=== PATIENT | female | born 1970 | race Caucasian/White ===

== ENCOUNTER 2016-10-12 22:06 | Emergency (ER) | payer BC, OTHER ==
[2016-10-12 22:06] VITALS: BMI 25.9
[2016-10-12 22:45] VITALS: RESP 20
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
[2016-10-12] MEDS ORDERED: Sodium Chloride 0.9% 1,000 ML IV ONE (23:39)
[2016-10-13] MEDS ORDERED: Sodium Chloride 0.9% 1,000 ML ONE (00:10)
[2016-10-13 01:44] VITALS: BP 110/62; PULSE 69; TEMP 98.2; O2SAT 99
--- NOTE | 2016-10-13 08:14 | CT ---
PROCEDURE: CT HEAD WITHOUT CONTRAST. HISTORY: Headache COMPARISON: None available. TECHNIQUE: Axial computed tomography images were obtained through the head/brain without intravenous contrast. Radiation dose: Total exam DLP = 895 mGy-cm. This CT exam was performed using one or more of the following dose reduction techniques: Automated exposure control, adjustment of the mA and/or kV according to patient size, and/or use of iterative reconstruction technique. FINDINGS: HEMORRHAGE: No intracranial hemorrhage. BRAIN: No mass effect or edema. No atrophy or chronic microvascular ischemic changes. VENTRICLES: Unremarkable. No hydrocephalus. CALVARIUM: Unremarkable. PARANASAL SINUSES: Unremarkable as visualized. No significant inflammatory changes. MASTOID AIR CELLS: Unremarkable as visualized. No inflammatory changes. OTHER FINDINGS: None. IMPRESSION: No acute intracranial abnormality. If focal neurologic deficit persists, consider MRI. These findings were preliminarily reported at 12:07 a.m. on 10/13/[address] Nagi Snyder from [facility].
== END 2016-10-13 01:43 | disposition home or self-care (01) ==
LOC: C.ER 22:06
DX: R51 Headache (principal)
CPT/HCPCS: 70450; 96361; 96374; 96375; 99285; J2405; J2930; J7040

== ENCOUNTER 2017-08-05 15:17 | Emergency (ER) | payer BC ==
[2017-08-05 15:17] VITALS: BMI 25.9
[2017-08-05 15:26] VITALS: RESP 18; O2SAT 97
[2017-08-05] MEDS ORDERED: Sodium Chloride 0.9% 1,000 ML IV STA (15:32)
[2017-08-05] MEDS ORDERED: Sodium Chloride 0.9% 1,000 ML ONE (15:39)
--- NOTE | 2017-08-05 16:55 | C.PDOC ---
History Of Present Illness 46 year old female, with no significant PMHx, presents to the ED for evaluation of fever, chills, myalgia, and nausea which had sudden onset since yesterday. Patient denies shortness of breath, cough, rash, vomiting and recent travel. Time Seen by Provider: 08/05/17 15:30 Chief Complaint (Nursing): Flu-like Symptoms History Per: Patient History/Exam Limitations: no limitations Onset/Duration Of Symptoms: Hrs, Sudden Onset Current Symptoms Are (Timing): Still Present Location Of Pain: Diffuse Myalgias Associated Symptoms: Fever, Chills, Nausea. denies: Cough, Vomiting Recent travel outside of the [place]: No Additional History Per: Patient Past Medical History Reviewed: Historical Data, Nursing Documentation, Vital Signs Vital Signs: Last Vital Signs Temp 100.4 F H 08/05/17 16:55 Pulse 103 H 08/05/17 16:55 Resp 18 08/05/17 16:55 BP 95/62 L 08/05/17 16:55 Pulse Ox 97 08/05/17 17:03 - Medical History PMH: No Chronic Diseases Surgical History: No Surg Hx Family History: States: Unknown Family Hx - Social History Hx Alcohol Use: No Hx Substance Use: No - Immunization History Hx Tetanus Toxoid Vaccination: No Hx Influenza Vaccination: No Hx Pneumococcal Vaccination: No Review Of Systems Respiratory: Negative for: Shortness of Breath Skin: Negative for: Rash Physical Exam - Physical Exam Additional Physical Exam Comments: Constitutional: Mildly uncomfortable. Head: Normocephalic. Atraumatic. Eyes: PERRL. ENT: Moist mucous membranes. Neck: Supple. Cardiovascular: Tachycardia. Radial pulse 2+ bilaterally. Chest: No tenderness. Respiratory: Clear to auscultation bilaterally. GI: Soft. Nontender. Nondistended. Back: No CVA tenderness. Musculoskeletal: No tenderness or swelling of extremities. Skin: No rash. Warm to touch. Neurologic: Alert, no focal deficit. ED Course And Treatment O2 Sat by Pulse Oximetry: 97 Medical Decision Making Medical Decision Making: Plan: * Zofran IVP * Toradol IVP * Tamiflu PO * IV Fluids * reassess and disposition Progress: Zofran IVP, Toradol IVP and IV fluids administered. Patient given Tamiflu PO for empiric influenza treatment. Vital signs improved. Has follow up with PMD, instructed to move up appointment to 2 days, instructed to return to ED for worsening pain, fever, vomiting, or any other problem. Disposition - Disposition Referrals: Tony Donis Jr., MD [Primary Care Provider] - Disposition: HOME/ ROUTINE Disposition Time: 17:02 Condition: STABLE Prescriptions: Acetaminophen [Tylenol 325mg tab] 2 tab PO Q4H #30 tab Ibuprofen [Motrin] 600 mg PO Q6 #25 tab Ondansetron ODT [Zofran ODT] 4 mg PO Q8 #12 odt Oseltamivir Phosphate [Tamiflu] 1 cap PO BID #9 capsule Instructions: Flu, Adult (DC) Forms: [facility] (Nepali), Work Excuse, Gen Discharge Inst Icelandic - Clinical Impression Clinical Impression: Influenza-like illness
[2017-08-05 16:56] VITALS: BP 95/62; PULSE 103; TEMP 100.4
== END 2017-08-05 17:19 | disposition home or self-care (01) ==
LOC: C.ER 15:17
DX: J11.1 Influenza due to unidentified influenza virus with other respiratory manifestations (principal)
CPT/HCPCS: 96361; 96374; 96375; 99283; J1885; J2405; J7040

== ENCOUNTER 2017-08-07 12:22 | Inpatient (IN) | payer BC ==
[2017-08-07 12:23] VITALS: BMI 25.9
[2017-08-07] MEDS ORDERED: Sodium Chloride 0.9% 1,000 ML IV ONE (13:13)
[2017-08-07 13:38] LABS: BASO # 0.1 K/uL (0.0-0.2); HEMOGLOBIN 12.1 g/dL (11.0-16.0); LYMPH # 0.3 K/uL (1.0-4.3); LYMPH % 2.4 % (20.0-40.0); MEAN CELL VOLUME 85.9 fL (81.0-99.0); MEAN CORPUSCULAR HGB CONC 33.7 g/dL (33.0-37.0); MEAN PLATELET VOLUME 10.2 fL (7.2-11.7); MONO # 0.4 K/uL (0.0-0.8); MONO % 3.3 % (0.0-10.0); NEUT # 10.7 K/uL (1.8-7.0); NEUT % 93.3 % (50.0-75.0); PLATELET COUNT 157 K/uL (130-400); RBC 4.17 Mil/uL (3.80-5.20); RED CELL DISTRIBUTION WIDTH 14.4 % (11.5-14.5); WHITE BLOOD COUNT 11.5 K/uL (4.8-10.8)
[2017-08-07 13:44] LABS: ALB/GLOB RATIO 0.9 (1.0-2.1); ALBUMIN 3.3 g/dL (3.5-5.0); ALT/SGPT 58 U/L (9-52); AST/SGOT 52 U/L (14-36); BLOOD UREA NITROGEN 12 mg/dL (7-17); CALCIUM 8.7 mg/dl (8.6-10.4); GFR AFRICAN-AMERICAN > 60; GFR NON-AFRICAN AMERICAN > 60; LIPASE 28 U/L (23-300)
[2017-08-07 13:45] LABS: HCG,QUALITATIVE URINE NEGATIVE (NEGATIVE)
[2017-08-07 13:59] LABS: SQUAMOUS EPITHIAL 7 /hpf (0-5); URINE BACTERIA FEW (<OCC); URINE BILIRUBIN NEGATIVE (NEGATIVE); URINE BLOOD 2+ (NEGATIVE); URINE CLARITY Hazy (Clear); URINE COLOR Amber (YELLOW); URINE GLUCOSE (UA) NORMAL (Normal); URINE LEUKOCYTE ESTERASE 3+ Leu/uL (Negative); URINE PROTEIN 2+ mg/dL (NEGATIVE); WBC CLUMPS FEW /hpf
[2017-08-07 14:03] LABS: ANISOCYTOSIS SLIGHT; BANDS 27 % (0-2); LARGE PLATELETS PRESENT; LYMPHOCYTE 3 % (20-40); MONOCYTE 4 % (0-10); NEUTROPHIL 66 % (50-75); PLATELET ESTIMATE NORMAL (NORMAL); TOTAL CELLS COUNTED 100
[2017-08-07 14:31] LABS: VENOUS BLOOD GAS BASE EXCESS -1.5 mmol/L (0.0-2.0); VENOUS BLOOD GAS PCO2 41 mmHg (40-60); VENOUS BLOOD GAS PO2 18 mm/Hg (30-55); VENOUS BLOOD PH 7.37 (7.32-7.43)
[2017-08-07] MEDS ORDERED: cefTRIAXone IV 1 gm in Dextros 50 ML IVPB STA (14:33)
[2017-08-07] MEDS ORDERED: cefTRIAXone IV 1 gm in Dextros 50 ML IVPB ONE (15:11)
--- NOTE | 2017-08-07 15:29 | CT ---
PROCEDURE: CT Abdomen and Pelvis without intravenous contrast HISTORY: Urosepsis. LUQ/left CVA tenderness. COMPARISON: None. TECHNIQUE: Axial and reformatted coronal and sagittal CT images of the abdomen and pelvis were obtained without IV or oral contrast administration.. Contrast Dose: 0 Radiation dose: Total exam DLP = 474.16 mGy-cm. This CT exam was performed using one or more of the following dose reduction techniques: Automated exposure control, adjustment of the mA and/or kV according to patient size, and/or use of iterative reconstruction technique. FINDINGS: LOWER THORAX: No evidence of acute pathology at the lung bases. Focal calcifications seen at the right lung base likely represent calcified granuloma. LIVER: Hepatomegaly and diffuse low-attenuation of the liver suggestive of hepatic steatosis. GALLBLADDER AND BILE DUCTS: No evidence of acute cholecystitis or biliary obstruction. PANCREAS: Unremarkable. No gross lesion or ductal dilatation. SPLEEN: Unremarkable. ADRENALS: Unremarkable. No mass. KIDNEYS AND URETERS: The left kidney is larger than the right surrounding with mild fat stranding. There is mild dietitian of the left kidney collecting system noted without evidence of obstructing stone. Mild fat stranding also surrounding the left ureter. Findings likely represent pyelonephritis/ UTI. The right kidney is grossly unremarkable. VASCULATURE: Unremarkable. No aortic aneurysm. BOWEL: Unremarkable. No obstruction. No gross mural thickening. APPENDIX: No evidence of acute appendicitis. PERITONEUM: No evidence of free fluid free air . LYMPH NODES: Unremarkable. No enlarged lymph nodes. BLADDER: Ziqg-oh-bbuigjmy circumferential urinary bladder wall thickening. REPRODUCTIVE: Unremarkable. BONES: No acute fracture. OTHER FINDINGS: None. IMPRESSION: Mild enlargement of the left kidney surrounding with mild fat stranding. Mild dietitian of the left kidney collecting system also surrounding with fat stranding without evidence of obstructing stone. Findings likely represent pyelonephritis and UTI. Ehpi-ou-jjknbpyy urinary bladder wall thickening suggestive of cystitis. Otherwise no evidence of acute pathology in the abdomen and pelvis.
--- NOTE | 2017-08-07 15:55 | C.PDOC ---
History Of Present Illness Pt c/o fever. She was seen here 2 days ago and treated for presumed Influenza. Pt returns today because she is worsening. Time Seen by Provider: 08/07/17 13:06 Chief Complaint (Nursing): Fever History Per: Patient, Family Onset/Duration Of Symptoms: Days (2) Current Symptoms Are (Timing): Worse Severity: Moderate Location Of Pain/Discomfort: LUQ Quality Of Discomfort: "Pain" Associated Symptoms: Fever, Chills, Nausea, Back Pain, Urinary Symptoms Alleviating Factors: None Additional History Per: Prior Records Past Medical History Reviewed: Historical Data, Nursing Documentation, Vital Signs Vital Signs: Last Vital Signs Temp 98.0 F 08/07/17 14:23 Pulse 99 H 08/07/17 14:23 Resp 22 08/07/17 14:23 BP 100/55 L 08/07/17 14:23 Pulse Ox 98 08/07/17 14:23 - Medical History PMH: No Chronic Diseases Surgical History: No Surg Hx Family History: States: Unknown Family Hx - Social History Hx Alcohol Use: No Hx Substance Use: No - Immunization History Hx Tetanus Toxoid Vaccination: No Hx Influenza Vaccination: No Hx Pneumococcal Vaccination: No Review Of Systems Except As Marked, All Systems Reviewed And Found Negative. Constitutional: Positive for: Fever, Chills, Malaise ENT: Negative for: Nose Congestion, Throat Pain Cardiovascular: Negative for: Chest Pain Respiratory: Negative for: Cough, Shortness of Breath Gastrointestinal: Positive for: Nausea, Vomiting, Abdominal Pain. Negative for : Diarrhea Genitourinary: Positive for: Dysuria, Frequency Musculoskeletal: Positive for: Back Pain Skin: Negative for: Rash Neurological: Positive for: Headache. Negative for: Weakness, Numbness, Seizures, Altered Mental Status Physical Exam - Physical Exam Appears: In Acute Distress (mild) Skin: Normal Color, Warm, Dry, No Rash Head: Atraumatic, Normacephalic Eye(s): bilateral: Normal Inspection, PERRL, EOMI Neck: Normal ROM, Supple Cardiovascular: Rhythm Regular Respiratory: Normal Breath Sounds, No Accessory Muscle Use Gastrointestinal/Abdominal: Soft, Tenderness (LUQ), No Distention Back: CVA Tenderness (left) Extremity: Normal ROM Neurological/Psych: Oriented x3, Normal Motor, Normal Sensation ED Course And Treatment - Laboratory Results Result Diagrams: 08/07/17 13:26 08/07/17 13:26 Lab Interpretation: Abnormal Interpretation Of Abnormal: Bandemia. UTI. Urine POC: Negative O2 Sat by Pulse Oximetry: 98 Pulse Ox Interpretation: Normal - CT Scan/US CT abd/pelv Other Rad Studies (CT/US): Read By Radiologist, Radiology Report Reviewed CT/US Interpretation: IMPRESSION: Mild enlargement of the left kidney surrounding with mild fat stranding. Mild dietitian of the left kidney collecting system also surrounding with fat stranding without evidence of obstructing stone. Findings likely represent pyelonephritis and UTI. Mild-to- moderate urinary bladder wall thickening suggestive of cystitis. Otherwise no evidence of acute pathology in the abdomen and pelvis. Progress - Interventions Interventions:: Observation, Intravenous fluid - Medications Administered Oral: Acetaminophen, Antiemetic Intravenous: H-2 pranav, Other (Abx) - Data Reviewed Data Reviewed: Lab, Diagnostic imaging, Old records - Patient Status Patient status: Partially improved - Continuity of Care Discussed patient case with:: Patient, Family-HIPPA compliant, ED Nurse, PMD - Patient Plan Patient Plan: Admission Disposition Discussed With DrCristian: Tony Donis Jr. Comment: He accepted pt on his service. Pt was also signed out to MAR. Doctor Will See Patient In The: Hospital Counseled Patient/Family Regarding: Studies Performed, Diagnosis - Disposition Disposition: HOSPITALIZED Disposition Time: 15:57 Condition: SERIOUS - Clinical Impression Clinical Impression: Fever, Sepsis, Acute pyelonephritis, Bandemia
[2017-08-07] MEDS ORDERED: Sodium Chloride 0.9% 1,000 ML IV SCH (16:30)
[2017-08-07] MEDS ORDERED: Potassium Chloride 20 mEq ER Tab PO ONE ×2 (16:34→17:10)
--- NOTE | 2017-08-07 16:38 | CP.PCM.HP ---
History of Present Illness - History of Present Illness History of Present Illness: HPI: Patient is a 46 year old female with no significant past medical history, who presents to the ED complaining of generalized headache, nausea/vomiting, body aches, and dysuria. Patient says this started Tuesday so she came to the ED to be evaluated, and was ultimately was sent home on tamiflu, zofran, and ibuprofen. Patient says over the weekend she felt like her symptoms were getting worse and she was having fever, chills, and 2 episodes of emesis, so she decided to come back today. Patient admits to associated left sided flank and back pain, hematuria, suprapubic tenderness, and urinary frequency. Patient also admits to nasal congestion and SOB and rapid heart rate when walking/ exerting herself. She denies dizziness, sore throat, changes in vision/hearing, chest pain, cough, diarrhea, constipation, calf pain, lower extremity swelling, sick contacts, and recent travel. PMH: denies Meds: denies Allergies: denies PSH: FH: mother with DM SH: denies tobacco, alcohol, and elicit drug use Present on Admission - Present on Admission Any Indicators Present on Admission: No Review of Systems - Review of Systems All systems: reviewed and no additional remarkable complaints except (as per HPI ) Past Patient History - Infectious Disease Hx of Infectious Diseases: None - Past Social History Smoking Status: Never Smoked - PSYCHIATRIC Hx Substance Use: No - SURGICAL HISTORY Hx Surgeries: Yes Hx Section: Yes Hx Hysterectomy: Yes - ANESTHESIA Hx Anesthesia: Yes Hx Anesthesia Reactions: No Meds Allergies/Adverse Reactions: Allergies Allergy/AdvReac Type Severity Reaction Status Date / Time No Known Allergies Allergy Verified 08/07/17 12:27 Physical Exam - Constitutional Appears: Non-toxic, No Acute Distress - Head Exam Head Exam: ATRAUMATIC, NORMAL INSPECTION, NORMOCEPHALIC - Eye Exam Eye Exam: EOMI, Normal appearance, PERRL - ENT Exam ENT Exam: Mucous Membranes Dry - Neck Exam Neck exam: Positive for: Normal Inspection - Respiratory Exam Respiratory Exam: Clear to Auscultation Bilateral, NORMAL BREATHING PATTERN - Cardiovascular Exam Cardiovascular Exam: Tachycardia, REGULAR RHYTHM, +S1, +S2. absent: Diastolic murmur, Gallop, Rubs, Systolic Murmur - GI/Abdominal Exam GI & Abdominal Exam: Guarding (voluntary), Normal Bowel Sounds, Soft, Tenderness (suprapubic and left flank ). absent: Distended - Extremities Exam Extremities exam: Positive for: normal inspection. Negative for: calf tenderness, pedal edema - Back Exam Back exam: CVA tenderness (L). absent: CVA tenderness (R), rash noted, vertebral tenderness - Neurological Exam Neurological exam: Alert, Oriented x3 - Psychiatric Exam Psychiatric exam: Normal Affect, Normal Mood - Skin Skin Exam: Dry, Intact, Normal Color, Warm Results - Vital Signs Recent Vital Signs: Last Vital Signs Temp 98.0 F 08/07/17 14:23 Pulse 99 H 08/07/17 14:23 Resp 22 08/07/17 14:23 BP 100/55 L 08/07/17 14:23 Pulse Ox 98 08/07/17 15:58 - Labs Result Diagrams: 08/07/17 13:26 08/07/17 13:26 Labs: Laboratory Results - last 24 hr 08/07/17 08/07/17 08/07/17 13:26 13:26 13:29 WBC 11.5 H D RBC 4.17 Hgb 12.1 Hct 35.9 MCV 85.9 MCH 29.0 MCHC 33.7 RDW 14.4 Plt Count 157 MPV 10.2 Neut % (Auto) 93.3 H Lymph % (Auto) 2.4 L Barton % (Auto) 3.3 Eos % (Auto) 0.0 Baso % (Auto) 1.0 Neut # (Auto) 10.7 H Lymph # (Auto) 0.3 L Barton # (Auto) 0.4 Eos # (Auto) 0.0 Baso # (Auto) 0.1 Neutrophils % (Manual) 66 Band Neutrophils % 27 H* Lymphocytes % (Manual) 3 L Monocytes % (Manual) 4 Differential Comment Cancelled Platelet Estimate Normal Large Platelets Present Anisocytosis (manual) Slight pO2 VBG pH VBG pCO2 VBG HCO3 VBG Total CO2 VBG O2 Sat (Calc) VBG Base Excess VBG Potassium Glucose Lactate Sodium 141 Potassium 3.3 L Chloride 106 Carbon Dioxide 22 Anion Gap 16 BUN 12 Creatinine 0.8 Est GFR ( Amer) > 60 Est GFR (Non-Af Amer) > 60 Random Glucose 132 H Calcium 8.7 Total Bilirubin 0.8 AST 52 H ALT 58 H Alkaline Phosphatase 157 H Total Protein 7.1 Albumin 3.3 L Globulin 3.8 Albumin/Globulin Ratio 0.9 L Lipase 28 Venous Blood Potassium Urine Color Urine Clarity Urine pH Ur Specific Woodworth Urine Protein Urine Glucose (UA) Urine Ketones Urine Blood Urine Nitrate Urine Bilirubin Urine Urobilinogen Ur Leukocyte Esterase Urine WBC (Auto) Urine RBC (Auto) Urine WBC Clumps (Auto) Ur Squamous Epith Cells Urine Bacteria Urine HCG, Qual Influenza Typ A,B (EIA) Negative for flu a/b 08/07/17 08/07/17 13:33 14:26 WBC RBC Hgb Hct MCV MCH MCHC RDW Plt Count MPV Neut % (Auto) Lymph % (Auto) Barton % (Auto) Eos % (Auto) Baso % (Auto) Neut # (Auto) Lymph # (Auto) Barton # (Auto) Eos # (Auto) Baso # (Auto) Neutrophils % (Manual) Band Neutrophils % Lymphocytes % (Manual) Monocytes % (Manual) Differential Comment Platelet Estimate Large Platelets Anisocytosis (manual) pO2 18 L VBG pH 7.37 VBG pCO2 41 VBG HCO3 21.8 VBG Total CO2 25.0 VBG O2 Sat (Calc) 38.1 L VBG Base Excess -1.5 L VBG Potassium 3.8 Glucose 129 H Lactate 1.2 Sodium 141.0 Potassium Chloride 110.0 H Carbon Dioxide Anion Gap BUN Creatinine Est GFR ( Amer) Est GFR (Non-Af Amer) Random Glucose Calcium Total Bilirubin AST ALT Alkaline Phosphatase Total Protein Albumin Globulin Albumin/Globulin Ratio Lipase Venous Blood Potassium 3.8 Urine Color Ute Urine Clarity Hazy Urine pH 6.0 Ur Specific Woodworth 1.017 Urine Protein 2+ H Urine Glucose (UA) Normal Urine Ketones Trace Urine Blood 2+ H Urine Nitrate Positive H Urine Bilirubin Negative Urine Urobilinogen 4.0 H Ur Leukocyte Esterase 3+ H Urine WBC (Auto) 486 H Urine RBC (Auto) 25 H Urine WBC Clumps (Auto) Few H Ur Squamous Epith Cells 7 H Urine Bacteria Few H Urine HCG, Qual Negative Influenza Typ A,B (EIA) Assessment & Plan - Assessment and Plan (Free Text) Plan: Cystitis, Pyelonephritis, Urosepsis * Fever 101.3, tachycardia 130, Leukocytosis 11.5 with bandemia (27) * Lactate 1.2 * UA: + nitrates and leuk esterase 3+, protein 2+, blood 2+ with RBC 25, WBC 486 ; see full results * CT abdomen/pelvis: Mild enlargement of the left kidney surrounding with mild fat stranding. Mild dietitian of the left kidney collecting system also surrounding with fat stranding without evidence of obstructing stone. Findings likely represent pyelonephritis and UTI. [id number] urinary bladder wall thickening suggestive of cystitis. Otherwise no evidence of acute pathology in the abdomen and pelvis. * f/u urine culture * f/u blood culture * Flu negative Meds/Fluids: * Tylenol 650 mg Q6 PRN fever * Rocephin 1 g IV daily * NS @100 cc/h Transaminitis * f/u hepatitis panel * f/u GGT * monitor with CMP Hypokalemia * Potassium 3.3 on admission * f/u magnesium level * Replaced, will monitor
[2017-08-07] MEDS: Sodium Chloride 0.9% 1,000 ML IV SCH (17:48)
[2017-08-08] MEDS: Sodium Chloride 0.9% 1,000 ML IV SCH ×5 (03:00→17:58)
[2017-08-08] MEDS ORDERED: guaiFENesin 100 mg/5 ml Syrup UD PO PRN (06:04)
[2017-08-08] MEDS ORDERED: (Novolin R) Insulin Human Regular 100 units/ml vial SC ONE (06:22)
[2017-08-08 07:42] LABS: BASO % 0.3 % (0.0-2.0); HEMOGLOBIN 11.7 g/dL (11.0-16.0); LYMPH # 0.7 K/uL (1.0-4.3); LYMPH % 7.7 % (20.0-40.0); MEAN CELL VOLUME 86.1 fL (81.0-99.0); MEAN CORPUSCULAR HEMOGLOBIN 29.1 pg (27.0-31.0); MEAN CORPUSCULAR HGB CONC 33.8 g/dL (33.0-37.0); MEAN PLATELET VOLUME 10.5 fL (7.2-11.7); MONO # 0.6 K/uL (0.0-0.8); NEUT # 8.2 K/uL (1.8-7.0); PLATELET COUNT 130 K/uL (130-400); RBC 4.01 Mil/uL (3.80-5.20); RED CELL DISTRIBUTION WIDTH 14.6 % (11.5-14.5); WHITE BLOOD COUNT 9.6 K/uL (4.8-10.8)
[2017-08-08 07:59] LABS: ALB/GLOB RATIO 0.9 (1.0-2.1); ALT/SGPT 47 U/L (9-52); AST/SGOT 53 U/L (14-36); BLOOD UREA NITROGEN 9 mg/dL (7-17); CALCIUM 8.1 mg/dl (8.6-10.4); GAMMA GLUTAMYL TRANSPEPTIDASE 101 U/L (8-78); GFR AFRICAN-AMERICAN > 60; GFR NON-AFRICAN AMERICAN > 60
[2017-08-08 08:33] LABS: HEPATITIS B SURFACE AG Negative (NEGATIVE)
[2017-08-08 08:36] LABS: ANISOCYTOSIS SLIGHT; BANDS 2 % (0-2); HYPOCHROMIC SLIGHT; LYMPHOCYTE 10 % (20-40); MONOCYTE 7 % (0-10); NEUTROPHIL 81 % (50-75); PLATELET ESTIMATE NORMAL (NORMAL); POIKILOCYTOSIS SLIGHT; TOTAL CELLS COUNTED 100
[2017-08-08 08:37] LABS: BURR CELLS SLIGHT; LARGE PLATELETS PRESENT; OVALOCYTES SLIGHT; TARGET CELLS SLIGHT
[2017-08-08 08:38] LABS: HEPATITIS A IGM NEGATIVE (NEGATIVE); HEPATITIS B CORE AB NEGATIVE (NEGATIVE)
[2017-08-08 08:49] LABS: HEPATITIS C ANTIBODY NEGATIVE (NEGATIVE)
[2017-08-08] MEDS ORDERED: Sodium Chloride 0.9% 1,000 ML IV ONE ×3 (09:37→15:25)
[2017-08-08] MEDS ORDERED: Morphine 4 MG/ML VIAL IV ONE (09:38)
--- NOTE | 2017-08-08 09:44 | CP.PCM.PN ---
<Henrry Melara - Last Filed: 08/08/17 15:29> Subjective - Date & Time of Evaluation Date of Evaluation: 08/08/17 Time of Evaluation: 09:39 - Subjective Subjective: Patient seen and examined at bedside Complaining of neck pain, head pain, and bilateral flank pain and stomach pain No nausea or vomiting. No chest pain Objective - Vital Signs/Intake and Output Vital Signs (last 24 hours): Temp Pulse Resp BP Pulse Ox 100.9 F H 90 20 102/66 98 08/08/17 06:25 08/08/17 08:06 08/08/17 08:06 08/08/17 08:06 08/08/17 08:06 Intake and Output: 08/08/17 08/08/17 06:59 18:59 Intake Total 1300 Balance 1300 - Medications Medications: Current Medications Acetaminophen (Tylenol 325mg Tab) 650 mg PO Q6 PRN PRN Reason: Fever >100.4 F Last Admin: 08/08/17 05:25 Dose: 650 mg Heparin Sodium (Porcine) (Heparin) 5,000 units SC Q12 PHILLIP Last Admin: 08/08/17 09:31 Dose: 5,000 units Ceftriaxone Sodium 1 gm/ (Sodium Chloride) 100 mls @ 100 mls/hr IVPB DAILY PHILLIP PRN Reason: Protocol Last Admin: 08/08/17 09:31 Dose: 100 mls/hr Meropenem 1 gm/ Sodium (Chloride) 100 mls @ 100 mls/hr IVPB Q8H PHILLIP PRN Reason: Protocol Sodium Chloride (Sodium Chloride 0.9%) 1,000 mls @ 150 mls/hr IV .Q6H40M PHILLIP Sodium Chloride (Sodium Chloride 0.9%) 1,000 mls @ 1,000 mls/hr IV .Q1H ONE Stop: 08/08/17 10:36 Morphine Sulfate (Morphine) 2 mg IV ONCE ONE Stop: 08/08/17 09:39 Ondansetron HCl (Zofran Inj) 4 mg IVP ONCE ONE Stop: 08/08/17 09:40 Pneumococcal Polyvalent Vaccine (Pneumovax 23 Vaccine) 0.5 ml IM .ONCE ONE Stop: 08/09/17 10:01 - Labs Labs: 08/08/17 07:18 08/08/17 07:18 - Constitutional Appears: Toxic, In Acute Distress - Head Exam Head Exam: ATRAUMATIC, NORMAL INSPECTION, NORMOCEPHALIC - Eye Exam Eye Exam: EOMI Pupil Exam: NORMAL ACCOMODATION - ENT Exam ENT Exam: Mucous Membranes Dry - Neck Exam Neck Exam: Tenderness - Respiratory Exam Respiratory Exam: Clear to Ausculation Bilateral, NORMAL BREATHING PATTERN - Cardiovascular Exam Cardiovascular Exam: Tachycardia - GI/Abdominal Exam GI & Abdominal Exam: Soft, Tenderness, Normal Bowel Sounds. absent: Distended - Extremities Exam Extremities Exam: absent: Joint Swelling, Tenderness - Neurological Exam Neurological Exam: Alert, Awake, Oriented x3 Additional comments: no neck pain with flexion the the legs Pain with ROM of the neck. - Psychiatric Exam Psychiatric exam: Normal Affect, Normal Mood Assessment and Plan (1) Acute pyelonephritis Assessment & Plan: UA: + nitrates and LE 3+, protein 2+, blood 2+, with RBC 25, WBC 486 CT abdomen/pelvis: Mild enlargement of the left kidney surrounding with mild fat stranding. Mild dietitian of the left kidney collecting system also surrounding with fat stranding without evidence of obstructing stone. Findings likely represent pyelonephritis and UTI. Lwlf-cu-iolbribi urinary bladder wall thickening suggestive of cystitis. f/u urine culture f/u blood culture Meds: Merrem 1g QD Gent 130mg IV 1x Tylenol and Motrin PRN for fever 3L NS Bolus NS @ 150 Knowles ID (Rodriguez) Status: Acute (2) Prophylactic measure Assessment & Plan: Heparin q12 GI PPX not indicated Status: Acute <Tony Donis Jr. - Last Filed: 08/17/17 13:32> Objective - Vital Signs/Intake and Output Vital Signs (last 24 hours): Temp Pulse Resp BP Pulse Ox 99 F 75 20 103/66 97 08/16/17 15:00 08/16/17 15:00 08/16/17 15:00 08/16/17 15:00 08/16/17 15:00 - Labs Labs: 08/16/17 06:27 08/16/17 06:27 Attending/Attestation - Attestation I have personally seen and examined this patient.: Yes I have fully participated in the care of the patient.: Yes I have reviewed all pertinent clinical information, including history, physical exam and plan: Yes Notes (Text): 08/17/17 13:32 Agree with the resident note findings and plan of care
[2017-08-08] MEDS: Meropenem 1 GM in Sodium Chloride 0.9% 100 ML IVPB SCH ×2 (10:06→19:00)
[2017-08-08 11:27] LABS: VENOUS BLOOD GAS BASE EXCESS -4.7 mmol/L (0.0-2.0); VENOUS BLOOD GAS PCO2 37 mmHg (40-60); VENOUS BLOOD GAS PO2 19 mm/Hg (30-55); VENOUS BLOOD PH 7.35 (7.32-7.43)
--- NOTE | 2017-08-08 11:50 | CP.PCM.CON ---
History of Present Illness - History of Present Illness History of Present Illness: INFECTIOUS DISEASE CONSULT; HPI: 46 year old female with no significant past medical history, who presents to the ED ON 08/07/17 complaining of generalized headache, nausea/vomiting, body aches, and dysuria. Patient says this started Tuesday so she came to the ED to be evaluated, and was ultimately was sent home on tamiflu, zofran, and ibuprofen. Patient says over the weekend she felt like her symptoms were getting worse and she was having fever, chills, and 2 episodes of emesis, so she decided to come back. Patient admits to associated left sided flank and back pain, hematuria, suprapubic tenderness, and urinary frequency. Patient also admits to nasal congestion and SOB and rapid heart rate when walking/exerting herself. She denies dizziness, sore throat, changes in vision/hearing, chest pain, cough, diarrhea, constipation, calf pain, lower extremity swelling. PATIENT UNDERWENT ct OF THE ABDOMEN AND PELVIS W/O BY MOUTH OR iv CONTRAST WHICH SHOWED NO OBSTRUCTION, NO HYDRO-BUT CONSISTENT WITH PYELONEPHRITIS/AND CYSTITIS. PATIENT WAS STARTED ON IV CEFTRIAXONE BY PMD-BUT LATER SWITCHED TO mERREM 1 G EVERY 8 HOURLY IN VIEW OF PERSISTENT SYMPTOMS AND ELEVATED FEVER OF 102. INFECTIOUS DISEASE CONSULTATION REQUESTED BY DR. TADEO FOR PYELONEPHRITIS AND SEPSIS.. PATIENT UNDERWENT SEPTIC WORKUP AND A DOSE OF iv GENTAMICIN 130 MG ORDERED TODAY,BY MYSELF. BLOOD CULTURES TODAY'S REPORTED +VE GRAM-NEGATIVE RODS. PATIENT COMPLAINING OF HEADACHE WITH ELEVATED TEMPERATURES THIS AFTERNOON.DENIES N/VOMITING. PMH: denies Meds: REVIEWED, Allergies: denies PSH: FH: mother with DM SH: denies tobacco, alcohol, and elicit drug use Medical History PMH: No Chronic Diseases Surgical History: No Surg Hx Family History: States: Unknown Family Hx - Social History Hx Alcohol Use: No Hx Substance Use: No - Immunization History Hx Tetanus Toxoid Vaccination: No Hx Influenza Vaccination: No Hx Pneumococcal Vaccination: No Review of Systems - Constitutional Constitutional: Chills, Fever, Headache, Lethargy - EENT Eyes: absent: Blurred Vision, Floaters, Pain Nose/Mouth/Throat: Nasal Congestion, Sinus Pain. absent: Mouth Lesions - Cardiovascular Cardiovascular: Palpitations, Rapid Heart Rate. absent: Chest Pain - Respiratory Respiratory: Cough. absent: Hemoptysis - Gastrointestinal Gastrointestinal: Abdominal Pain. absent: Diarrhea, Nausea, Vomiting - Genitourinary Genitourinary: Dysuria, Hematuria, Urinary Urgency - Neurological Neurological: Headaches - Hematologic/Lymphatic Hematologic: As Per HPI. absent: Easy Bleeding, Easy Bruising, Lymphadenopathy Past Patient History - Infectious Disease Hx of Infectious Diseases: None - Past Medical History & Family History Past Medical History?: Yes - Past Social History Smoking Status: Never Smoked - CARDIAC Hx Cardiac Disorders: No - PULMONARY Hx Respiratory Disorders: No - NEUROLOGICAL Hx Neurological Disorder: No - HEENT Hx HEENT Problems: No - RENAL Hx Chronic Kidney Disease: No - ENDOCRINE/METABOLIC Hx Endocrine Disorders: No - HEMATOLOGICAL/ONCOLOGICAL Hx Blood Disorders: No - INTEGUMENTARY Hx Dermatological Problems: No - MUSCULOSKELETAL/RHEUMATOLOGICAL Hx Musculoskeletal Disorders: No Hx Falls: No - GASTROINTESTINAL Hx Gastrointestinal Disorders: No - GENITOURINARY/GYNECOLOGICAL Hx Genitourinary Disorders: No - PSYCHIATRIC Hx Depression: Yes Hx Substance Use: No - SURGICAL HISTORY Hx Surgeries: Yes Hx Section: Yes Hx Hysterectomy: Yes - ANESTHESIA Hx Anesthesia: Yes Hx Anesthesia Reactions: No Meds Allergies/Adverse Reactions: Allergies Allergy/AdvReac Type Severity Reaction Status Date / Time No Known Allergies Allergy Verified 08/07/17 12:27 - Medications Medications: Current Medications Acetaminophen (Tylenol 325mg Tab) 650 mg PO Q6 PRN PRN Reason: Fever >100.4 F Last Admin: 08/08/17 11:15 Dose: 650 mg Heparin Sodium (Porcine) (Heparin) 5,000 units SC Q12 [facility] Last Admin: 08/08/17 09:31 Dose: 5,000 units Ceftriaxone Sodium 1 gm/ (Sodium Chloride) 100 mls @ 100 mls/hr IVPB DAILY [facility] PRN Reason: Protocol Last Admin: 08/08/17 09:31 Dose: 100 mls/hr Meropenem 1 gm/ Sodium (Chloride) 100 mls @ 100 mls/hr IVPB Q8H [facility] PRN Reason: Protocol Last Admin: 08/08/17 10:06 Dose: 100 mls/hr Sodium Chloride (Sodium Chloride 0.9%) 1,000 mls @ 150 mls/hr IV .Q6H40M [facility] Last Admin: 08/08/17 10:08 Dose: Not Given Pneumococcal Polyvalent Vaccine (Pneumovax 23 Vaccine) 0.5 ml IM .ONCE ONE Stop: 08/09/17 10:01 Physical Exam - Constitutional Appears: Toxic - Head Exam Head Exam: NORMAL INSPECTION - Eye Exam Eye Exam: EOMI, PERRL - ENT Exam ENT Exam: Mucous Membranes Moist, Normal Oropharynx - Neck Exam Neck exam: Positive for: Normal Inspection. Negative for: Lymphadenopathy, Meningismus - Respiratory Exam Respiratory Exam: Rhonchi (RT .SIDE), NORMAL BREATHING PATTERN - Cardiovascular Exam Cardiovascular Exam: Tachycardia, REGULAR RHYTHM, +S1, +S2 - GI/Abdominal Exam GI & Abdominal Exam: Soft, Tenderness (LT. FLANK/SUPRAPUBIC.). absent: Organomegaly - Extremities Exam Extremities exam: Positive for: pedal pulses present. Negative for: calf tenderness, pedal edema - Back Exam Back exam: CVA tenderness (L) - Neurological Exam Neurological exam: Alert, CN II-XII Intact, Oriented x3, Reflexes Normal - Psychiatric Exam Psychiatric exam: Normal Mood - Skin Skin Exam: Normal Color Results - Vital Signs Recent Vital Signs: Last Vital Signs Temp 100.4 F H 08/08/17 11:15 Pulse 90 08/08/17 08:06 Resp 20 08/08/17 08:06 BP 102/66 08/08/17 08:06 Pulse Ox 98 08/08/17 08:06 - Labs Result Diagrams: 08/08/17 07:18 08/08/17 07:18 Labs: Laboratory Results - last 24 hr 08/07/17 08/07/17 08/07/17 13:26 13:26 13:29 WBC 11.5 H D RBC 4.17 Hgb 12.1 Hct 35.9 MCV 85.9 MCH 29.0 MCHC 33.7 RDW 14.4 Plt Count 157 MPV 10.2 Neut % (Auto) 93.3 H Lymph % (Auto) 2.4 L Granite % (Auto) 3.3 Eos % (Auto) 0.0 Baso % (Auto) 1.0 Neut # (Auto) 10.7 H Lymph # (Auto) 0.3 L Granite # (Auto) 0.4 Eos # (Auto) 0.0 Baso # (Auto) 0.1 Neutrophils % (Manual) 66 Band Neutrophils % 27 H* Lymphocytes % (Manual) 3 L Monocytes % (Manual) 4 Differential Comment Cancelled Platelet Estimate Normal Large Platelets Present Hypochromasia (manual) Poikilocytosis (manual Anisocytosis (manual) Slight Target Cells Ovalocytes Sarahy Cells pO2 VBG pH VBG pCO2 VBG HCO3 VBG Total CO2 VBG O2 Sat (Calc) VBG Base Excess VBG Potassium Glucose Lactate Sodium 141 Potassium 3.3 L Chloride 106 Carbon Dioxide 22 Anion Gap 16 BUN 12 Creatinine 0.8 Est GFR ( Amer) > 60 Est GFR (Non-Af Amer) > 60 Random Glucose 132 H Calcium 8.7 Phosphorus Magnesium Total Bilirubin 0.8 GGT AST 52 H ALT 58 H Alkaline Phosphatase 157 H Total Protein 7.1 Albumin 3.3 L Globulin 3.8 Albumin/Globulin Ratio 0.9 L Lipase 28 Venous Blood Potassium Urine Color Urine Clarity Urine pH Ur Specific Medon Urine Protein Urine Glucose (UA) Urine Ketones Urine Blood Urine Nitrate Urine Bilirubin Urine Urobilinogen Ur Leukocyte Esterase Urine WBC (Auto) Urine RBC (Auto) Urine WBC Clumps (Auto) Ur Squamous Epith Cells Urine Bacteria Urine HCG, Qual Hepatitis A IgM Ab Hep Bs Antigen Hep B Core IgM Ab Hepatitis C Antibody Influenza Typ A,B (EIA) Negative for flu a/b 08/07/17 08/07/17 08/08/17 13:33 14:26 07:18 WBC 9.6 RBC 4.01 Hgb 11.7 Hct 34.5 MCV 86.1 MCH 29.1 MCHC 33.8 RDW 14.6 H Plt Count 130 MPV 10.5 Neut % (Auto) 86.0 H Lymph % (Auto) 7.7 L Granite % (Auto) 6.0 Eos % (Auto) 0.0 Baso % (Auto) 0.3 Neut # (Auto) 8.2 H Lymph # (Auto) 0.7 L Granite # (Auto) 0.6 Eos # (Auto) 0.0 Baso # (Auto) 0.0 Neutrophils % (Manual) 81 H Band Neutrophils % 2 Lymphocytes % (Manual) 10 L Monocytes % (Manual) 7 Differential Comment Platelet Estimate Normal Large Platelets Present Hypochromasia (manual) Slight Poikilocytosis (manual Slight Anisocytosis (manual) Slight Target Cells Slight Ovalocytes Slight Sarahy Cells Slight pO2 18 L VBG pH 7.37 VBG pCO2 41 VBG HCO3 21.8 VBG Total CO2 25.0 VBG O2 Sat (Calc) 38.1 L VBG Base Excess -1.5 L VBG Potassium 3.8 Glucose 129 H Lactate 1.2 Sodium 141.0 Potassium Chloride 110.0 H Carbon Dioxide Anion Gap BUN Creatinine Est GFR ( Amer) Est GFR (Non-Af Amer) Random Glucose Calcium Phosphorus Magnesium Total Bilirubin GGT AST ALT Alkaline Phosphatase Total Protein Albumin Globulin Albumin/Globulin Ratio Lipase Venous Blood Potassium 3.8 Urine Color Ute Urine Clarity Hazy Urine pH 6.0 Ur Specific Medon 1.017 Urine Protein 2+ H Urine Glucose (UA) Normal Urine Ketones Trace Urine Blood 2+ H Urine Nitrate Positive H Urine Bilirubin Negative Urine Urobilinogen 4.0 H Ur Leukocyte Esterase 3+ H Urine WBC (Auto) 486 H Urine RBC (Auto) 25 H Urine WBC Clumps (Auto) Few H Ur Squamous Epith Cells 7 H Urine Bacteria Few H Urine HCG, Qual Negative Hepatitis A IgM Ab Hep Bs Antigen Hep B Core IgM Ab Hepatitis C Antibody Influenza Typ A,B (EIA) 08/08/17 08/08/17 08/08/17 07:18 07:18 11:17 WBC RBC Hgb Hct MCV MCH MCHC RDW Plt Count MPV Neut % (Auto) Lymph % (Auto) Granite % (Auto) Eos % (Auto) Baso % (Auto) Neut # (Auto) Lymph # (Auto) Granite # (Auto) Eos # (Auto) Baso # (Auto) Neutrophils % (Manual) Band Neutrophils % Lymphocytes % (Manual) Monocytes % (Manual) Differential Comment Platelet Estimate Large Platelets Hypochromasia (manual) Poikilocytosis (manual Anisocytosis (manual) Target Cells Ovalocytes Dowling Cells pO2 19 L VBG pH 7.35 VBG pCO2 37 L VBG HCO3 19.3 VBG Total CO2 21.5 L VBG O2 Sat (Calc) 34.7 L VBG Base Excess -4.7 L VBG Potassium 3.3 L Glucose 125 H Lactate 1.9 Sodium 140 141.0 Potassium 3.6 Chloride 109 H 109.0 H Carbon Dioxide 18 L Anion Gap 17 BUN 9 Creatinine 0.7 Est GFR ( Amer) > 60 Est GFR (Non-Af Amer) > 60 Random Glucose 126 H Calcium 8.1 L Phosphorus 2.2 L Magnesium 1.6 Total Bilirubin 0.9 GGT 101 H AST 53 H ALT 47 Alkaline Phosphatase 155 H Total Protein 6.3 Albumin 3.0 L Globulin 3.3 Albumin/Globulin Ratio 0.9 L Lipase Venous Blood Potassium 3.3 L Urine Color Urine Clarity Urine pH Ur Specific [place]on Urine Protein Urine Glucose (UA) Urine Ketones Urine Blood Urine Nitrate Urine Bilirubin Urine Urobilinogen Ur Leukocyte Esterase Urine WBC (Auto) Urine RBC (Auto) Urine WBC Clumps (Auto) Ur Squamous Epith Cells Urine Bacteria Urine HCG, Qual Hepatitis A IgM Ab Negative Hep Bs Antigen Negative Hep B Core IgM Ab Negative Hepatitis C Antibody Negative Influenza Typ A,B (EIA) - Imaging and Cardiology Chest x-ray Status: Report reviewed by me (CONFLUENT AIRSPACE CONSOLIDATIVE CHANGES,RUL/ RTLUNG APEX.RIGHT HILAR PROMINENCE.) Assessment & Plan (1) Gram-negative sepsis Assessment and Plan: pancultures MRSA SCREEN. ESR CRP. CONTINUE iv MERREM 1 G EVERY 8 HOURLY.08/08/16. 1 DOSE GENTAMICIN 130 MILLIGRAMS, iv STAT. ADD iv VANCOMYCIN 1 G EVERY 12 HOURLY FOR GRAM-POSITIVE/[employer] COVERAGE PATIENT HAS PNEUMONIA. fOLLOW-UP vANCO TROUGH LEVEL PRIOR TO THE FOURTH DOSE AND KEEP IT BETWEEN 10 AND 20 G PER Ml. fOLLOW-UP RENAL FUNCTIONS CLOSELY. case discussed w resident. Status: Acute (2) Acute pyelonephritis Assessment and Plan: UA/ URINE CULTURES- PENDING. pATIENT ON BROAD-SPECTRUM ANTIBIOTICS. Status: Acute (3) Pneumonia Assessment and Plan: F/U ATYPICAL TITERS ORDERED. PATIENT ON BROAD-SPECTRUM ANTIBIOTICS. SPUTUM GRAM STAIN AND CULTURE. Status: Acute (4) Headache Assessment and Plan: HEADACHE MOST PROBABLY SECONDARY TO ELEVATED TEMPERATURES AND LIKELY TO BE VASCULAR. CT HEAD WITHOUT CONTRAST R/O SINUSITIS Status: Acute
--- NOTE | 2017-08-08 12:50 | RAD ---
Chest x-ray single frontal view History: Fever. Comparison: None available. Findings: Confluent airspace consolidative changes projecting over the right lung apex and right upper lung zone may represent underlying infiltrate and or atelectasis. Right hilar prominence. Mild diffuse increased interstitial lung markings which may represent mild edema and or infiltrate. Tortuous and prominent aorta. Degenerative changes in the spine. Impression: Confluent airspace consolidative changes projecting over the right lung apex and right upper lung zone may represent underlying infiltrate and or atelectasis. Right hilar prominence. Mild diffuse increased interstitial lung markings which may represent mild edema and or infiltrate. Tortuous and prominent aorta.
[2017-08-08] MEDS ORDERED: Gentamicin 80 mg/2mL Inj. IVPB ONE (14:00)
[2017-08-08] MEDS ORDERED: Vancomycin 1 gm/NS 200 ml 1 GM/200 ML BAG IVPB ONE (15:15)
[2017-08-08] MEDS: Vancomycin 1 gm/NS 200 ml 1 GM/200 ML BAG IVPB SCH (21:32)
[2017-08-09] MEDS: Meropenem 1 GM in Sodium Chloride 0.9% 100 ML IVPB SCH ×3 (02:23→18:16)
[2017-08-09] MEDS: Sodium Chloride 0.9% 1,000 ML IV SCH ×2 (02:25→12:48)
[2017-08-09 06:35] LABS: BASO # 0.1 K/uL (0.0-0.2); BASO % 0.8 % (0.0-2.0); EOS % 0.5 % (0.0-4.0); HEMOGLOBIN 12.9 g/dL (11.0-16.0); LYMPH % 13.4 % (20.0-40.0); MEAN CELL VOLUME 86.2 fL (81.0-99.0); MEAN CORPUSCULAR HGB CONC 33.6 g/dL (33.0-37.0); MEAN PLATELET VOLUME 9.7 fL (7.2-11.7); MONO # 0.4 K/uL (0.0-0.8); MONO % 5.5 % (0.0-10.0); NEUT # 5.9 K/uL (1.8-7.0); NEUT % 79.8 % (50.0-75.0); NRBC % 0.1 % (0.0-2.0); RBC 4.47 Mil/uL (3.80-5.20); RED CELL DISTRIBUTION WIDTH 14.9 % (11.5-14.5); WHITE BLOOD COUNT 7.3 K/uL (4.8-10.8)
[2017-08-09 08:19] LABS: ALB/GLOB RATIO 0.8 (1.0-2.1); ALT/SGPT 47 U/L (9-52); AST/SGOT 44 U/L (14-36); BLOOD UREA NITROGEN 7 mg/dL (7-17); CALCIUM 8.2 mg/dl (8.6-10.4); GFR AFRICAN-AMERICAN > 60; GFR NON-AFRICAN AMERICAN > 60
[2017-08-09] MEDS: Vancomycin 1 gm/NS 200 ml 1 GM/200 ML BAG IVPB SCH ×2 (08:21→21:14)
[2017-08-09] MEDS ORDERED: Pneumococcal 23-Valent Vaccine IM ONE (10:00)
--- NOTE | 2017-08-09 11:50 | CT ---
PROCEDURE: CT SINUSES WITHOUT CONTRAST HISTORY: sinusitus COMPARISON: None TECHNIQUE: Contiguous axial CT images of the paranasal sinuses were obtained. Coronal and sagittal reformats were generated. Radiation dose: Total exam DLP = 663.53 mGy-cm. This CT exam was performed using one or more of the following dose reduction techniques: Automated exposure control, adjustment of the mA and/or kV according to patient size, and/or use of iterative reconstruction technique. FINDINGS: The bilateral frontal, ethmoid, sphenoid and maxillary sinuses are well developed and aerated without abnormal opacification appreciated grossly. No destructive bony lesion is associated and there is a [id number] right brenden bullosa appreciated, minimal left brenden bullosa. SINUS DRAINAGE: The right ostiomeatal unit is remarkable only for mild narrowing of the right hiatus semilunaris due the right brenden bullosa with a widely patent and unremarkable appearing left ostiomeatal unit evident. No significant stenosis of the bilateral frontal recesses or the bilateral sphenoethmoidal recesses. NASAL SEPTUM: No significant deviation. No destructive lesion. MASS: None. SKULL BASE: Unremarkable. TEMPORAL BONES: Middle ears and mastoid grossly unremarkable. OTHER FINDINGS: None. IMPRESSION: Mild narrowing of the right hiatus in a semilunaris due to [id number] right brenden bullosa. Sinus drainage pathways are otherwise adequately patent and unremarkable. Minimal left brenden bullosa. No evidence to suggest sinusitis throughout the paranasal sinuses as discussed above.
[2017-08-09] MEDS: Potassium Chloride 20 mEq ER Tab PO SCH ×3 (12:20→18:48)
[2017-08-09] MEDS ORDERED: HYDROmorphone 0.5 mg/0.5 ml ISec IVP STA (12:27)
[2017-08-09] MEDS ORDERED: HYDROmorphone 0.5 mg/0.5 ml ISec IVP ONE (12:45)
--- NOTE | 2017-08-09 13:21 | RAD ---
HISTORY: Infiltrate, congestion. COMPARISON: August 08, 2017. FINDINGS: LUNGS: Pulmonary vascular congestion accentuated by suboptimal inspiratory effort. PLEURA: No significant pleural effusion identified, no pneumothorax apparent. CARDIOVASCULAR: Normal. OSSEOUS STRUCTURES: No significant abnormalities. VISUALIZED UPPER ABDOMEN: Normal. OTHER FINDINGS: None. IMPRESSION: Pulmonary vascular congestion approximately stable accounting for differences in technique.
--- NOTE | 2017-08-09 15:38 | CP.PCM.PN ---
<Henrry Melara - Last Filed: 08/09/17 15:34> Subjective - Date & Time of Evaluation Date of Evaluation: 08/09/17 Time of Evaluation: 15:34 - Subjective Subjective: Patient seen and examined at bedside Had one episode of fever overnight Afebrile through day tolerating new antibiotics without difficulty making good urine tolerating diety no nausea or vomiting complaining of chills Objective - Vital Signs/Intake and Output Vital Signs (last 24 hours): Temp Pulse Resp BP Pulse Ox 98.5 F 108 H 20 103/67 97 08/09/17 14:47 08/09/17 07:40 08/09/17 07:40 08/09/17 07:40 08/09/17 07:40 Intake and Output: 08/09/17 08/09/17 06:59 18:59 Intake Total 3300 1200 Output Total 2100 2000 Balance 1200 -800 - Medications Medications: Current Medications Acetaminophen (Tylenol 325mg Tab) 650 mg PO Q6 PRN PRN Reason: Fever >100.4 F Last Admin: 08/09/17 12:20 Dose: 650 mg Heparin Sodium (Porcine) (Heparin) 5,000 units SC Q12 [facility] Last Admin: 08/09/17 10:06 Dose: 5,000 units Meropenem 1 gm/ Sodium (Chloride) 100 mls @ 100 mls/hr IVPB Q8H [facility] PRN Reason: Protocol Last Admin: 08/09/17 10:06 Dose: 100 mls/hr Sodium Chloride (Sodium Chloride 0.9%) 1,000 mls @ 100 mls/hr IV .Q10H [facility] Last Admin: 08/09/17 12:48 Dose: Not Given Vancomycin/Sodium Chloride (Vancomycin 1 Gm/Ns 200 Ml) 1 gm in 200 mls @ 166.6 mls/hr IVPB Q12H [facility] PRN Reason: Protocol Stop: 08/13/17 20:16 Last Admin: 08/09/17 08:21 Dose: 166.6 mls/hr Ibuprofen (Motrin Tab) 400 mg PO Q4H PRN PRN Reason: Fever >100.4 F Last Admin: 08/09/17 13:37 Dose: 400 mg Pneumococcal Polyvalent Vaccine (Pneumovax 23 Vaccine) 0.5 ml IM .ONCE ONE Stop: 08/11/17 11:02 Potassium Chloride (K-Dur 20 Meq Er Tab) 20 meq PO Q4H [facility] Stop: 08/09/17 23:46 Last Admin: 08/09/17 15:19 Dose: 20 meq - Labs Labs: 08/09/17 06:29 08/09/17 06:29 - Additional Findings Additional findings: - Constitutional Appears: Toxic, In Acute Distress - Head Exam Head Exam: ATRAUMATIC, NORMAL INSPECTION, NORMOCEPHALIC - Eye Exam Eye Exam: EOMI Pupil Exam: NORMAL ACCOMODATION - ENT Exam ENT Exam: Mucous Membranes Dry - Neck Exam Neck Exam: Tenderness - Respiratory Exam Respiratory Exam: Clear to Ausculation Bilateral, NORMAL BREATHING PATTERN - Cardiovascular Exam Cardiovascular Exam: Tachycardia - GI/Abdominal Exam GI & Abdominal Exam: Soft, Tenderness, Normal Bowel Sounds. absent: Distended - Extremities Exam Extremities Exam: absent: Joint Swelling, Tenderness - Neurological Exam Neurological Exam: Alert, Awake, Oriented x3 Additional comments: no neck pain with flexion the the legs Pain with ROM of the neck. - Psychiatric Exam Psychiatric exam: Normal Affect, Normal Mood Assessment and Plan (1) Acute pyelonephritis Assessment & Plan: UA: + nitrates and LE 3+, protein 2+, blood 2+, with RBC 25, WBC 486 CT abdomen/pelvis: Mild enlargement of the left kidney surrounding with mild fat stranding. Mild dietitian of the left kidney collecting system also surrounding with fat stranding without evidence of obstructing stone. Findings likely represent pyelonephritis and UTI. [id number] urinary bladder wall thickening suggestive of cystitis. Urine culture negative blood culture - gram negative radha Meds: Merrem 1g QD Vango 1 gram QD Gent 130mg IV 1x Tylenol and Motrin PRN for fever 3L NS Bolus NS @ 150 Knowles ID (Rodriguez) Status: Acute (2) Prophylactic measure Assessment & Plan: Heparin q12 GI PPX not indicated Status: Acute <Tony Donis Jr. - Last Filed: 08/17/17 13:34> Objective - Vital Signs/Intake and Output Vital Signs (last 24 hours): Temp Pulse Resp BP Pulse Ox 99 F 75 20 103/66 97 08/16/17 15:00 08/16/17 15:00 08/16/17 15:00 08/16/17 15:00 08/16/17 15:00 - Labs Labs: 08/16/17 06:27 08/16/17 06:27 Attending/Attestation - Attestation I have personally seen and examined this patient.: Yes I have fully participated in the care of the patient.: Yes I have reviewed all pertinent clinical information, including history, physical exam and plan: Yes Notes (Text): 08/17/17 13:34 Agree with resident's findings and plan of care
--- NOTE | 2017-08-09 16:14 | CP.PCM.PN ---
Subjective - Date & Time of Evaluation Date of Evaluation: 08/09/17 Time of Evaluation: 16:14 - Subjective Subjective: CHIEF COMPLAINTS TODAY : tmax 101.5, BP 113/78. FEELING SLIGHTLY BETTER. +VE FOLY INSERTION SECONDARY TO HESITANCY OF URINATION. ROS. HEENT : N. Resp : No SOB wheezing, cough Cardio : No CP, PND orthopnea GI : LT.FLANK PAIN. 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 Musculoskel : N Ext. : Pedal pulses intact, no edema or calf pain Derm : N Psych : N. PE. Pt. is alert awake in no distress. V.S As noted in the chart Head ,ear nose,throat and eyes : Normal. Neck : Supple with normal carotids. Lungs: DIMINISHED BREATH SOUNDS AT THE BASES. Heart : S1 & S2 normal . . No murmur. S4 + Abd : Soft non tender with normal bowel sounds. Neuro : Moves all ext. with no localized deficit. Ext : No edema with intact pulses. Neg. calf tenderness Derm : No rashes or decubitus ulcer. Radiology/Labs . BLOOD CULTURES -GNR IN ANAEROBIC VIAL URINE CULTURES NEGATIVE GROWTH. CT SINUSES - UNREMARKABLE HEPATITIS SCREEN -VE Objective - Vital Signs/Intake and Output Vital Signs (last 24 hours): Temp Pulse Resp BP Pulse Ox 98.5 F 108 H 20 103/67 97 08/09/17 14:47 08/09/17 07:40 08/09/17 07:40 08/09/17 07:40 08/09/17 07:40 Intake and Output: 08/09/17 08/09/17 06:59 18:59 Intake Total 3300 1200 Output Total 2100 2000 Balance 1200 -800 - Medications Medications: Current Medications Acetaminophen (Tylenol 325mg Tab) 650 mg PO Q6 PRN PRN Reason: Fever >100.4 F Last Admin: 08/09/17 12:20 Dose: 650 mg Heparin Sodium (Porcine) (Heparin) 5,000 units SC Q12 [facility] Last Admin: 08/09/17 10:06 Dose: 5,000 units Meropenem 1 gm/ Sodium (Chloride) 100 mls @ 100 mls/hr IVPB Q8H [facility] PRN Reason: Protocol Last Admin: 08/09/17 10:06 Dose: 100 mls/hr Sodium Chloride (Sodium Chloride 0.9%) 1,000 mls @ 100 mls/hr IV .Q10H [facility] Last Admin: 08/09/17 12:48 Dose: Not Given Vancomycin/Sodium Chloride (Vancomycin 1 Gm/Ns 200 Ml) 1 gm in 200 mls @ 166.6 mls/hr IVPB Q12H [facility] PRN Reason: Protocol Stop: 08/13/17 20:16 Last Admin: 08/09/17 08:21 Dose: 166.6 mls/hr Ibuprofen (Motrin Tab) 400 mg PO Q4H PRN PRN Reason: Fever >100.4 F Last Admin: 08/09/17 13:37 Dose: 400 mg Pneumococcal Polyvalent Vaccine (Pneumovax 23 Vaccine) 0.5 ml IM .ONCE ONE Stop: 08/11/17 11:02 Potassium Chloride (K-Dur 20 Meq Er Tab) 20 meq PO Q4H [facility] Stop: 08/09/17 23:46 Last Admin: 08/09/17 15:19 Dose: 20 meq - Labs Labs: 08/09/17 06:29 08/09/17 06:29 Assessment and Plan (1) Gram-negative sepsis Assessment & Plan: SOURCE OF GRAM-NEGATIVE SEPSIS NOT VERY CLEAR-MOST PROBABLE VS INTRA- ABDOMINAL CONTINUE iv MERREM 1 G EVERY 8 HOURLY.08/08/16. 1 DOSE GENTAMICIN 130 MILLIGRAMS, iv STAT.-GIVEN 08/08/17 CONTINUE iv GENTAMICIN 80 MG iv PIGGYBACK ONCE A DAY DAILY X3 DAYS FOR SYNERGY CONTINUE iv VANCOMYCIN 1 G EVERY 12 HOURLY FOR NOW. fOLLOW-UP vANCO TROUGH LEVEL PRIOR TO THE FOURTH DOSE AND KEEP IT BETWEEN 10 AND 20 G PER Ml. CONSIDER 2-d ECHO R/O ENDOCARDITIS. fOLLOW-UP RENAL FUNCTIONS CLOSELY. case discussed w STAFF. Status: Acute (2) Acute pyelonephritis Status: Acute (3) Pneumonia Assessment & Plan: F/U CHEST X-RAY REPEAT ORDERED Status: Acute (4) Headache Assessment & Plan: MUCH IMPROVED. PROBABLY VASCULAR. F/U NEURO STATUS AND FEVER CURVE Status: Acute
[2017-08-10] MEDS: Potassium Chloride 20 mEq ER Tab PO SCH (00:23)
[2017-08-10] MEDS: Sodium Chloride 0.9% 1,000 ML IV SCH ×3 (00:27→22:15)
[2017-08-10] MEDS: Meropenem 1 GM in Sodium Chloride 0.9% 100 ML IVPB SCH ×3 (02:22→19:01)
[2017-08-10 03:08] LABS: SQUAMOUS EPITHIAL < 1 /hpf (0-5); URINE BACTERIA RARE (<OCC); URINE BILIRUBIN NEGATIVE (NEGATIVE); URINE BLOOD 2+ (NEGATIVE); URINE CLARITY Clear (Clear); URINE COLOR Yellow (YELLOW); URINE GLUCOSE (UA) NORMAL (Normal); URINE LEUKOCYTE ESTERASE NEG Leu/uL (Negative); URINE PROTEIN NEGATIVE (NEGATIVE); URINE UROBILINOGEN NORMAL mg/dL (0.2-1.0)
[2017-08-10 06:43] LABS: BASO % 0.9 % (0.0-2.0); EOS # 0.1 K/uL (0.0-0.7); EOS % 0.9 % (0.0-4.0); HEMOGLOBIN 11.9 g/dL (11.0-16.0); LYMPH # 1.1 K/uL (1.0-4.3); LYMPH % 20.2 % (20.0-40.0); MEAN CELL VOLUME 85.3 fL (81.0-99.0); MEAN CORPUSCULAR HEMOGLOBIN 28.9 pg (27.0-31.0); MEAN CORPUSCULAR HGB CONC 33.9 g/dL (33.0-37.0); MEAN PLATELET VOLUME 9.8 fL (7.2-11.7); MONO # 0.5 K/uL (0.0-0.8); MONO % 8.3 % (0.0-10.0); NEUT # 3.9 K/uL (1.8-7.0); NEUT % 69.7 % (50.0-75.0); PLATELET COUNT 145 K/uL (130-400); RBC 4.11 Mil/uL (3.80-5.20); RED CELL DISTRIBUTION WIDTH 14.9 % (11.5-14.5); WHITE BLOOD COUNT 5.6 K/uL (4.8-10.8)
[2017-08-10 07:26] LABS: ALB/GLOB RATIO 0.8 (1.0-2.1); ALBUMIN 2.5 g/dL (3.5-5.0); ALT/SGPT 53 U/L (9-52); AST/SGOT 53 U/L (14-36); BLOOD UREA NITROGEN 7 mg/dL (7-17); CALCIUM 7.8 mg/dl (8.6-10.4); GFR AFRICAN-AMERICAN > 60; GFR NON-AFRICAN AMERICAN > 60
[2017-08-10] MEDS: Vancomycin 1 gm/NS 200 ml 1 GM/200 ML BAG IVPB SCH ×2 (08:34→22:14)
[2017-08-10] MEDS ORDERED: Sodium Chloride 0.9% 1,000 ML IV ONE (08:54)
[2017-08-10] MEDS ORDERED: Morphine 4 MG/ML VIAL IVP STA ×2 (08:59→10:50)
[2017-08-10] MEDS: Potassium Chloride 20 mEq/15 ml LIQ UD PO SCH ×3 (09:12→18:00)
--- NOTE | 2017-08-10 09:16 | CP.PCM.PN ---
<Henrry Melara - Last Filed: 08/11/17 15:16> Subjective - Date & Time of Evaluation Date of Evaluation: 08/10/17 Time of Evaluation: 09:07 - Subjective Subjective: Patient seen and examined at bedside Patient still complaining of headache and left sided flank pain as well as shaking chills. Patient for echo today No other complaints at this time. Objective - Vital Signs/Intake and Output Vital Signs (last 24 hours): Temp Pulse Resp BP Pulse Ox 98.1 F 81 20 110/72 98 08/10/17 08:00 08/10/17 08:00 08/10/17 08:00 08/10/17 08:00 08/10/17 08:00 Intake and Output: 08/10/17 08/10/17 06:59 18:59 Intake Total 1300 1040 Output Total 2400 1000 Balance -1100 40 - Medications Medications: Current Medications Acetaminophen (Tylenol 325mg Tab) 650 mg PO Q6 PRN PRN Reason: Fever >100.4 F Last Admin: 08/09/17 12:20 Dose: 650 mg Heparin Sodium (Porcine) (Heparin) 5,000 units SC Q12 PHILLIP Last Admin: 08/09/17 21:13 Dose: 5,000 units Meropenem 1 gm/ Sodium (Chloride) 100 mls @ 100 mls/hr IVPB Q8H PHILLIP PRN Reason: Protocol Last Admin: 08/10/17 02:22 Dose: 100 mls/hr Sodium Chloride (Sodium Chloride 0.9%) 1,000 mls @ 100 mls/hr IV .Q10H PHILLIP Last Admin: 08/10/17 00:27 Dose: 100 mls/hr Vancomycin/Sodium Chloride (Vancomycin 1 Gm/Ns 200 Ml) 1 gm in 200 mls @ 166.6 mls/hr IVPB Q12H PHILLIP PRN Reason: Protocol Stop: 08/13/17 20:16 Last Admin: 08/10/17 08:34 Dose: 166.6 mls/hr Gentamicin Sulfate 80 mg/ (Sodium Chloride) 102 mls @ 100 mls/hr IVPB Q24H PHILLIP PRN Reason: Protocol Last Admin: 08/10/17 00:23 Dose: 100 mls/hr Sodium Chloride (Sodium Chloride 0.9%) 1,000 mls @ 1,000 mls/hr IV .Q1H ONE Stop: 08/10/17 09:53 Ibuprofen (Motrin Tab) 400 mg PO Q4H PRN PRN Reason: Fever >100.4 F Last Admin: 08/10/17 00:33 Dose: 400 mg Pneumococcal Polyvalent Vaccine (Pneumovax 23 Vaccine) 0.5 ml IM .ONCE ONE Stop: 08/11/17 11:02 Potassium Chloride (Potassium Chloride Oral Soln) 20 meq PO Q4H PHILLIP Stop: 08/10/17 17:01 - Labs Labs: 08/10/17 06:28 08/10/17 06:28 - Constitutional Appears: Toxic - Head Exam Head Exam: ATRAUMATIC, NORMAL INSPECTION, NORMOCEPHALIC - Eye Exam Eye Exam: EOMI Pupil Exam: NORMAL ACCOMODATION - ENT Exam ENT Exam: Mucous Membranes Moist - Respiratory Exam Respiratory Exam: Clear to Ausculation Bilateral, NORMAL BREATHING PATTERN - Cardiovascular Exam Cardiovascular Exam: REGULAR RHYTHM - GI/Abdominal Exam GI & Abdominal Exam: Soft, Normal Bowel Sounds. absent: Distended, Tenderness - Extremities Exam Extremities Exam: absent: Joint Swelling - Neurological Exam Neurological Exam: Alert, Awake, Oriented x3 - Psychiatric Exam Psychiatric exam: Normal Affect, Normal Mood - Skin Skin Exam: absent: Petechiae, Rash Assessment and Plan (1) Gram-negative sepsis Assessment & Plan: Urine culture negative Blood culture + for E. coli (Not ESBL) ANKITA today as urine is negative and abdominal CT does not show other source of infection at this time. Still may be intra-abdominal. Source of infection unclear at this time. Will control pain with morphine as needed ID (Miguelina) on case, will follow her recommendations Merrem 1g IV Q8 Gent 80 IV QD of 2 more days Vanco 1g QD, follow up vanco trough prior to 4th dose NS @ 150 1L bolus given today Status: Acute (2) Prophylactic measure Assessment & Plan: heparin q12 GI PPX not indicated Status: Acute <Tony Donis Jr. - Last Filed: 08/17/17 13:35> Objective - Vital Signs/Intake and Output Vital Signs (last 24 hours): Temp Pulse Resp BP Pulse Ox 99 F 75 20 103/66 97 08/16/17 15:00 08/16/17 15:00 08/16/17 15:00 08/16/17 15:00 04/24/18 15:00 - Labs Labs: 08/16/17 06:27 08/16/17 06:27 Attending/Attestation - Attestation I have personally seen and examined this patient.: Yes I have fully participated in the care of the patient.: Yes I have reviewed all pertinent clinical information, including history, physical exam and plan: Yes Notes (Text): 08/17/17 13:34 Agree with resident note findings and plan of care
[2017-08-10 09:27] LABS: BANDS 3 % (0-2); BASOPHIL 1 % (0-2); HYPOCHROMIC SLIGHT; LARGE PLATELETS PRESENT; LYMPHOCYTE 22 % (20-40); METAMYELOCYTE 1 % (0-0); MONOCYTE 6 % (0-10); MYELOCYTE 1 % (0-0); NEUTROPHIL 66 % (50-75); PLATELET ESTIMATE NORMAL (NORMAL); TOTAL CELLS COUNTED 100
--- NOTE | 2017-08-10 14:48 | CT ---
PROCEDURE: CT Chest and Abdomen without intravenous contrast HISTORY: sepsis, intrabdominal source? PNA? COMPARISON: No prior CT imaging of the chest. CT scan of the abdomen and pelvis dated 08/07/2017. TECHNIQUE: Radiation dose: Total exam DLP = 627.0 mGy-cm. This CT exam was performed using one or more of the following dose reduction techniques: Automated exposure control, adjustment of the mA and/or kV according to patient size, and/or use of iterative reconstruction technique. FINDINGS: LUNGS: Subsegmental right upper lobe atelectasis. Right lower lobe calcified granuloma. No mass. MEDIASTINUM: Unremarkable. Normal caliber aorta and pulmonary arterial trunk. Normal size heart. LYMPH NODES: Right suprahilar calcified lymph node. PLEURA: Trace left pleural effusion. No pneumothorax. LIVER: Hepatic steatosis. No gross lesion or ductal dilatation. GALLBLADDER AND BILE DUCTS: Unremarkable. PANCREAS: Unremarkable. No gross lesion or ductal dilatation. SPLEEN: Unremarkable. ADRENALS: Unremarkable. No mass. KIDNEYS AND URETERS: Left nephromegaly with perinephric stranding. No hydronephrosis. No solid mass. VASCULATURE: Unremarkable. No aortic aneurysm. BOWEL: Unremarkable. No obstruction. No gross mural thickening. PERITONEUM: Small fat containing umbilical hernia. No free fluid. No free air. LYMPH NODES: Unremarkable. No enlarged lymph nodes. BONES: No acute fracture. OTHER FINDINGS: None. IMPRESSION: Right upper lobe subsegmental atelectasis. Similar appearance of left nephromegaly with perinephric stranding, possibly due to pyelonephritis.
[2017-08-10] MEDS ORDERED: DiphenhydrAMINE 50 mg/ml Inj IVP STA (15:14)
[2017-08-10 16:08] VITALS: RESP 20
--- NOTE | 2017-08-10 18:45 | CT ---
PROCEDURE: CT HEAD WITHOUT CONTRAST. HISTORY: Unrelenting GARCIA, Fevers COMPARISON: 10/12/2016 TECHNIQUE: Axial computed tomography images were obtained through the head/brain without intravenous contrast. Radiation dose: Total exam DLP = 859.97 mGy-cm. This CT exam was performed using one or more of the following dose reduction techniques: Automated exposure control, adjustment of the mA and/or kV according to patient size, and/or use of iterative reconstruction technique. FINDINGS: HEMORRHAGE: No intracranial hemorrhage. BRAIN: No mass effect or edema. No atrophy or chronic microvascular ischemic changes. VENTRICLES: Unremarkable. No hydrocephalus. CALVARIUM: Unremarkable. PARANASAL SINUSES: Unremarkable as visualized. No significant inflammatory changes. MASTOID AIR CELLS: Unremarkable as visualized. No inflammatory changes. OTHER FINDINGS: None. IMPRESSION: Normal CT of the Head.
--- NOTE | 2017-08-10 18:46 | CP.PCM.PN ---
Subjective - Date & Time of Evaluation Date of Evaluation: 08/10/17 Time of Evaluation: 18:46 - Subjective Subjective: CHIEF COMPLAINTS TODAY : tmax 102.1 vs BP141/79 [id number]/MIN. C/O HEADACHE/ NECK PAINS +VE CHILLS PT FOR LP TODAY CT HEAD -VE ROS. HEENT : N. Resp : No SOB wheezing, cough Cardio : No CP, PND orthopnea GI : LT.FLANK PAIN. ,+VE NAUSEA ,NO VOMITING CASE COORDINATOR : No headache , focal deficit. Musculoskel : N Ext. : Pedal pulses intact, no edema or calf pain Derm : N Psych : N. PE. Pt. is alert awake in no distress. V.S As noted in the chart Head ,ear nose,throat and eyes : Normal. Neck : Supple with normal carotids. Lungs: DIMINISHED BREATH SOUNDS AT THE BASES. Heart : S1 ,S2 REGULAR, TACHYCARDIC Abd : MILD TENDERNESS LEFT FLANK, with normal bowel sounds. Neuro : Moves all ext. with no localized deficit. Ext : No edema with intact pulses. Neg. calf tenderness Derm : No rashes or decubitus ulcer. Radiology/Labs . CHEST X-RAY - PVC suboptimal inspiratory effort. BLOOD CULTURE +VE E.COLI S-MERREM,GENT,CIPRO URINE CULTURES NEGATIVE GROWTH. CT SINUSES - UNREMARKABLE HEPATITIS SCREEN -VE Objective - Vital Signs/Intake and Output Vital Signs (last 24 hours): Temp Pulse Resp BP Pulse Ox 98.6 F 89 20 125/83 97 08/10/17 15:00 08/10/17 15:00 08/10/17 15:00 08/10/17 15:00 08/10/17 15:00 Intake and Output: 08/10/17 08/10/17 06:59 18:59 Intake Total 1300 3840 Output Total 2400 3500 Balance -1100 340 - Medications Medications: Current Medications Acetaminophen (Tylenol 325mg Tab) 650 mg PO Q6 PRN PRN Reason: Fever >100.4 F Last Admin: 08/10/17 11:43 Dose: 650 mg Heparin Sodium (Porcine) (Heparin) 5,000 units SC Q12 PHILLIP Last Admin: 08/10/17 09:14 Dose: 5,000 units Meropenem 1 gm/ Sodium (Chloride) 100 mls @ 100 mls/hr IVPB Q8H PHILLIP PRN Reason: Protocol Last Admin: 08/10/17 11:38 Dose: 100 mls/hr Sodium Chloride (Sodium Chloride 0.9%) 1,000 mls @ 100 mls/hr IV .Q10H PHILLIP Last Admin: 08/10/17 11:44 Dose: 100 mls/hr Vancomycin/Sodium Chloride (Vancomycin 1 Gm/Ns 200 Ml) 1 gm in 200 mls @ 166.6 mls/hr IVPB Q12H PHILLIP PRN Reason: Protocol Stop: 08/13/17 20:16 Last Admin: 08/10/17 08:34 Dose: 166.6 mls/hr Gentamicin Sulfate 80 mg/ (Sodium Chloride) 102 mls @ 100 mls/hr IVPB Q24H PHILLIP PRN Reason: Protocol Last Admin: 08/10/17 00:23 Dose: 100 mls/hr Ibuprofen (Motrin Tab) 400 mg PO Q4H PRN PRN Reason: Fever >100.4 F Last Admin: 08/10/17 00:33 Dose: 400 mg Pneumococcal Polyvalent Vaccine (Pneumovax 23 Vaccine) 0.5 ml IM .ONCE ONE Stop: 08/11/17 11:02 - Labs Labs: 08/10/17 06:28 08/10/17 06:28 Assessment and Plan (1) Gram-negative sepsis Assessment & Plan: SOURCE OF GRAM-NEGATIVE SEPSIS NOT VERY CLEAR-MOST PROBABLE VS INTRA- ABDOMINAL CONTINUE iv MERREM 1 G EVERY 8 HOURLY.08/08/16. 1 DOSE GENTAMICIN 130 MILLIGRAMS, iv STAT.-GIVEN 08/08/17 CONTINUE iv GENTAMICIN 80 MG iv PIGGYBACK ONCE A DAY DAILY X3 DAYS FOR SYNERGY CONTINUE iv VANCOMYCIN 1 G EVERY 12 HOURLY FOR NOW. fOLLOW-UP vANCO TROUGH LEVEL PRIOR TO THE FOURTH DOSE AND KEEP IT BETWEEN 10 AND 20 G PER Ml. CONSIDER 2-d ECHO R/O ENDOCARDITIS. fOLLOW-UP RENAL FUNCTIONS CLOSELY. case discussed w STAFF. Status: Acute (2) Acute pyelonephritis Status: Deleted (3) Pneumonia Status: Acute (4) Headache Assessment & Plan: r/o occult CASE COORDINATOR infection, meningitis. PATIENT FOR LP TODAY START ON IV ACYCLOVIR 500 MG EVERY 8 HOURLY FOR VIRAL MENINGITIS F/U LP DISCUSSED WITH RESIDENT. Status: Acute
[2017-08-10] MEDS ORDERED: Acyclovir 500 MG in Sodium Chloride 0.9% 100 ML IV SCH (19:00)
[2017-08-10 21:36] LABS: FLUID TYPE SPINAL FLUID
[2017-08-10 21:58] LABS: CSF APPEARANCE CLEAR/COLORLESS (CLEAR); CSF VOLUME 2 mL (0-1)
[2017-08-10 22:15] LABS: N MENINGITIS ACY/W135 NEGATIVE (NEGATIVE); N MENINGITIS B/ECOLI K1 NEGATIVE (NEGATIVE); STREP PNEUMONIAE NEGATIVE (NEGATIVE); STREPTOCOCCUS B NEGATIVE (NEGATIVE)
[2017-08-11] MEDS: Meropenem 1 GM in Sodium Chloride 0.9% 100 ML IVPB SCH ×3 (04:00→18:08)
[2017-08-11] MEDS: Sodium Chloride 0.9% 1,000 ML IV SCH ×3 (05:20→16:07)
[2017-08-11] MEDS: Acyclovir 500 MG in Sodium Chloride 0.9% 100 ML IV SCH ×2 (05:40→14:27)
[2017-08-11 07:07] LABS: BASO # 0.1 K/uL (0.0-0.2); EOS % 0.1 % (0.0-4.0); HEMOGLOBIN 12.7 g/dL (11.0-16.0); LYMPH % 19.1 % (20.0-40.0); MEAN CELL VOLUME 84.5 fL (81.0-99.0); MEAN CORPUSCULAR HEMOGLOBIN 28.6 pg (27.0-31.0); MEAN CORPUSCULAR HGB CONC 33.8 g/dL (33.0-37.0); MEAN PLATELET VOLUME 9.9 fL (7.2-11.7); MONO # 0.2 K/uL (0.0-0.8); MONO % 4.1 % (0.0-10.0); NEUT % 75.7 % (50.0-75.0); PLATELET COUNT 177 K/uL (130-400); RBC 4.46 Mil/uL (3.80-5.20); RED CELL DISTRIBUTION WIDTH 15.1 % (11.5-14.5); WHITE BLOOD COUNT 5.3 K/uL (4.8-10.8)
--- NOTE | 2017-08-11 07:16 | PCM.PROC ---
Procedures Attestation:: I certify that I have explained the specified Operation(s) or Procedure(s), risks, benefits and reasonable alternatives to the Patient and/or other person responsible. The opportunity was given to ask questions and all questions answered - Lumbar Puncture Consent Obtained: Written Consent Time Out Performed: Yes Patient Position: Left Lateral Decubitius Skin Prep: Povidone-Iodine 1%, 0.5% Chlorhexidine/Alcohol Local Anesthetic Used: Lidocaine 1% Spinal Needle Gauge: 20G Interspace Used: L4-L5 Opening Pressure (cmH2O): 19 Fluid Initially Obtained: Clear Complications: None
--- NOTE | 2017-08-11 07:16 | CP.PCM.PN ---
<Henrry Melara - Last Filed: 08/11/17 16:52> Subjective - Date & Time of Evaluation Date of Evaluation: 08/11/17 Time of Evaluation: 07:15 - Subjective Subjective: Patient seen and examined at bedside states headache and neck pain is much improved but still complaining fo some pain tolerated LP well last night Belly pain resolving. No other complaints at this time Objective - Vital Signs/Intake and Output Vital Signs (last 24 hours): Temp Pulse Resp BP Pulse Ox 98.4 F 93 H 20 109/73 97 08/11/17 05:30 08/11/17 05:30 08/11/17 05:30 08/11/17 00:00 08/11/17 05:30 Intake and Output: 08/11/17 08/11/17 06:59 18:59 Intake Total 2100 Output Total 2600 Balance -500 - Medications Medications: Current Medications Acetaminophen (Tylenol 325mg Tab) 650 mg PO Q6 PRN PRN Reason: Fever >100.4 F Last Admin: 08/10/17 22:13 Dose: 650 mg Meropenem 1 gm/ Sodium (Chloride) 100 mls @ 100 mls/hr IVPB Q8H PHILLIP PRN Reason: Protocol Last Admin: 08/11/17 04:00 Dose: 100 mls/hr Sodium Chloride (Sodium Chloride 0.9%) 1,000 mls @ 100 mls/hr IV .Q10H PHILLIP Last Admin: 08/10/17 22:15 Dose: 100 mls/hr Vancomycin/Sodium Chloride (Vancomycin 1 Gm/Ns 200 Ml) 1 gm in 200 mls @ 166.6 mls/hr IVPB Q12H PHILLIP PRN Reason: Protocol Stop: 08/13/17 20:16 Last Admin: 08/10/17 22:14 Dose: 166.6 mls/hr Gentamicin Sulfate 80 mg/ (Sodium Chloride) 102 mls @ 100 mls/hr IVPB Q24H PHILLIP PRN Reason: Protocol Last Admin: 08/11/17 00:30 Dose: 100 mls/hr Acyclovir 500 mg/ Sodium (Chloride) 100 mls @ 100 mls/hr IV Q8H PHILLIP PRN Reason: Protocol Last Admin: 08/11/17 05:40 Dose: 100 mls/hr Ibuprofen (Motrin Tab) 400 mg PO Q4H PRN PRN Reason: Fever >100.4 F Last Admin: 08/10/17 00:33 Dose: 400 mg Pneumococcal Polyvalent Vaccine (Pneumovax 23 Vaccine) 0.5 ml IM .ONCE ONE Stop: 08/11/17 11:02 - Labs Labs: 08/11/17 06:56 08/10/17 06:28 - Constitutional Appears: Well - Head Exam Head Exam: ATRAUMATIC, NORMAL INSPECTION, NORMOCEPHALIC - Eye Exam Eye Exam: EOMI, Normal appearance, PERRL Pupil Exam: NORMAL ACCOMODATION, PERRL - ENT Exam ENT Exam: Mucous Membranes Moist, Normal Exam - Neck Exam Neck Exam: Full ROM, Normal Inspection. absent: Lymphadenopathy - Respiratory Exam Respiratory Exam: Clear to Ausculation Bilateral, NORMAL BREATHING PATTERN - Cardiovascular Exam Cardiovascular Exam: REGULAR RHYTHM, +S1, +S2. absent: Murmur - GI/Abdominal Exam GI & Abdominal Exam: Soft, Normal Bowel Sounds. absent: Tenderness - Extremities Exam Extremities Exam: Full ROM, Normal Capillary Refill, Normal Inspection. absent : Joint Swelling, Pedal Edema - Back Exam Back Exam: NORMAL INSPECTION - Neurological Exam Neurological Exam: Alert, Awake, CN II-XII Intact, Normal Gait, Oriented x3 - Psychiatric Exam Psychiatric exam: Normal Affect, Normal Mood - Skin Skin Exam: Dry, Intact, Normal Color, Warm Assessment and Plan (1) Gram-negative sepsis Assessment & Plan: Urine culture negative Blood culture + for E. coli (Not ESBL) Echo is normal CT abdomen chest today shows RUL PNA as well as redemonstration of Left. pyelo. Will control pain with morphine as needed ID (Miguelina) on case, will follow her recommendations Merrem 1g IV Q8 NS @ 100 LP done on 08/10 Follow up the CSF cultures * fungal gram stain negative * no WBC or RBC * Glucose 54 * Protein 44 Patient has RUL PNA F/U Sputum cultures Duonebs Q4 x4 Doses Robitussin Q4H PRN Rise in liver enzymes most likely response from infection Status: Acute (2) Prophylactic measure Assessment & Plan: heparin q12 GI PPX not indicated Status: Acute <Tony Donis Jr. - Last Filed: 08/17/17 13:35> Objective - Vital Signs/Intake and Output Vital Signs (last 24 hours): Temp Pulse Resp BP Pulse Ox 99 F 75 20 103/66 97 08/16/17 15:00 08/16/17 15:00 08/16/17 15:00 08/16/17 15:00 08/16/17 15:00 - Labs Labs: 08/16/17 06:27 08/16/17 06:27 Attending/Attestation - Attestation I have personally seen and examined this patient.: Yes I have fully participated in the care of the patient.: Yes I have reviewed all pertinent clinical information, including history, physical exam and plan: Yes Notes (Text): 08/17/17 13:35 Agree with resident's findings and plan of care
[2017-08-11 07:51] LABS: ALB/GLOB RATIO 0.8 (1.0-2.1); ALT/SGPT 89 U/L (9-52); AST/SGOT 110 U/L (14-36); BLOOD UREA NITROGEN 11 mg/dL (7-17); CALCIUM 7.9 mg/dl (8.6-10.4); GFR AFRICAN-AMERICAN > 60; GFR NON-AFRICAN AMERICAN > 60
[2017-08-11] MEDS: Vancomycin 1 gm/NS 200 ml 1 GM/200 ML BAG IVPB SCH (09:15)
[2017-08-11 09:48] LABS: INTRACELLULAR PARASITE NEGATIVE (NEGATIVE)
[2017-08-11] MEDS ORDERED: Pneumococcal 23-Valent Vaccine IM ONE (11:01)
--- NOTE | 2017-08-11 12:31 | CARD ---
APPROVED REPORT EXAM: Two-dimensional and M-mode echocardiogram with Doppler and color Doppler. INDICATION Infection:Rule out subacute bacterial endocarditis Acute pyelonephritis/ sepsis 2D DIMENSIONS IVSd0.7 (0.7-1.1cm)LVDd4.4 (3.9-5.9cm) PWd0.6 (0.7-1.1cm)LVDs3.1 (2.5-4.0cm) FS (%) 28.7 %LVEF (%)55.5 (>50%) M-Mode DIMENSIONS Left Atrium (MM)3.40 (2.5-4.0cm)Aortic Root2.45 (2.2-3.7cm) Aortic Cusp Exc.1.97 (1.5-2.0cm) Mitral Valve MV E Dzdjxrge45.8cm/sMV A Uawjoxwa37.8cm/sE/A ratio1.3 TDI E/Lateral E'0.0E/Medial E'0.0 Tricuspid Valve TR Peak Fjifkzmt556uu/sTR Peak Gr.25mmHg LEFT VENTRICLE The left ventricle is normal size. There is normal left ventricular wall thickness. The left ventricular function is normal. The left ventricular ejection fraction is within the normal range. There is normal LV segmental wall motion. The left ventricular diastolic function is normal. No left ventricle thrombus noted on this study. There is no ventricular septal defect visualized. There is no left ventricular aneurysm. There is no mass noted in the left ventricle. RIGHT VENTRICLE The right ventricle is normal size. There is normal right ventricular wall thickness. The right ventricular systolic function is normal. ATRIA The left atrium size is normal. The right atrium size is normal. The interatrial septum is intact with no evidence for an atrial septal defect. AORTIC VALVE The aortic valve is normal in structure. No aortic regurgitation is present. There is no aortic valvular stenosis. There is no aortic valvular vegetation. MITRAL VALVE The mitral valve is normal in structure. There is no mitral valve stenosis. Mitral regurgitation is mild. TRICUSPID VALVE The tricuspid valve is normal in structure. There is no tricuspid valve regurgitation noted. PULMONIC VALVE The pulmonary valve is normal in structure. There is no pulmonic valvular regurgitation. GREAT VESSELS The aortic root is normal in size. The ascending aorta is normal in size. The pulmonary artery is normal. The IVC is normal in size and collapses >50% with inspiration. <Conclusion> Mitral regurgitation is mild. OTHERWISE NORMAL STUDY.
[2017-08-11] MEDS ORDERED: guaiFENesin 100 mg/5 ml Syrup UD PO STA (13:55)
[2017-08-11] MEDS: Albuterol-Ipratrop 3 mg / 0.5 (3 ml) UD INH SCH ×2 (15:41→19:35)
[2017-08-11] MEDS ORDERED: guaiFENesin 100 mg/5 ml Syrup UD PO PRN (18:00)
--- NOTE | 2017-08-11 21:19 | CP.PCM.PN ---
Subjective - Date & Time of Evaluation Date of Evaluation: 08/11/17 Time of Evaluation: 21:19 - Subjective Subjective: CHIEF COMPLAINTS TODAY : INTERMITTENT FEBRILE. C/O GARCIA ALSO WITH DRY COUGH S/P LP -VE ROS. HEENT : N. Resp : No SOB wheezing, cough Cardio : No CP, PND orthopnea GI : LT.FLANK PAIN. 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 Musculoskel : N Ext. : Pedal pulses intact, no edema or calf pain Derm : N Psych : N. PE. Pt. is alert awake in no distress. V.S As noted in the chart Head ,ear nose,throat and eyes : Normal. Neck : Supple with normal carotids. Lungs: DIMINISHED BREATH SOUNDS AT THE BASES. Heart : S1 ,S2 REGULAR, TACHYCARDIC Abd : MILD TENDERNESS LEFT FLANK, with normal bowel sounds. Neuro : Moves all ext. with no localized deficit. Ext : No edema with intact pulses. Neg. calf tenderness Derm : No rashes or decubitus ulcer. Radiology/Labs . CHEST X-RAY - PVC suboptimal inspiratory effort. BLOOD CULTURE +VE E.COLI S-MERREM,GENT,CIPRO URINE CULTURES NEGATIVE GROWTH. CT SINUSES - UNREMARKABLE HEPATITIS SCREEN -VE Objective - Vital Signs/Intake and Output Vital Signs (last 24 hours): Temp Pulse Resp BP Pulse Ox 98.3 F 81 20 106/68 97 08/11/17 15:00 08/11/17 15:44 08/11/17 15:00 08/11/17 15:00 08/11/17 15:00 Intake and Output: 08/11/17 08/12/17 18:59 06:59 Intake Total 1400 Output Total 1500 Balance -100 - Medications Medications: Current Medications Albuterol/Ipratropium (Duoneb 3 Mg/0.5 Mg (3 Ml) Ud) 3 ml INH RQ4 PHILLIP Stop: 08/12/17 04:01 Last Admin: 08/11/17 19:35 Dose: 3 ml Guaifenesin (Robitussin) 100 mg PO Q4H PRN PRN Reason: Cough Meropenem 1 gm/ Sodium (Chloride) 100 mls @ 100 mls/hr IVPB Q8H PHILLIP PRN Reason: Protocol Last Admin: 08/11/17 18:08 Dose: 100 mls/hr Sodium Chloride (Sodium Chloride 0.9%) 1,000 mls @ 100 mls/hr IV .Q10H PHILLIP Last Admin: 08/11/17 16:07 Dose: 100 mls/hr Ibuprofen (Motrin Tab) 400 mg PO Q4H PRN PRN Reason: Fever >100.4 F Last Admin: 08/11/17 09:33 Dose: 400 mg - Labs Labs: 08/11/17 06:56 08/11/17 06:56 Assessment and Plan (1) Gram-negative sepsis Assessment & Plan: SOURCE OF GRAM-NEGATIVE SEPSIS NOT VERY CLEAR-MOST PROBABLE VS INTRA- ABDOMINAL CONTINUE iv MERREM 1 G EVERY 8 HOURLY.08/08/16. 1 DOSE GENTAMICIN 130 MILLIGRAMS, iv STAT.-GIVEN 08/08/17 CONTINUE iv GENTAMICIN 80 MG iv PIGGYBACK ONCE A DAY DAILY X3 DAYS FOR SYNERGY CONTINUE iv VANCOMYCIN 1 G EVERY 12 HOURLY FOR NOW. fOLLOW-UP vANCO TROUGH LEVEL PRIOR TO THE FOURTH DOSE AND KEEP IT BETWEEN 10 AND 20 G PER Ml. WILL GET CERETAC SCAN ABDOMEN R/O INTRAABDOMINAL ABSCESS Status: Acute (2) Pneumonia Assessment & Plan: PT HAS A DRY COUGH. Status: Acute (3) Headache Assessment & Plan: IMPROVING . ? VASCULAR GARCIA. Status: Acute
[2017-08-12] MEDS: Sodium Chloride 0.9% 1,000 ML IV SCH
[2017-08-12] MEDS: Albuterol-Ipratrop 3 mg / 0.5 (3 ml) UD INH SCH ×5 (00:59→20:12)
[2017-08-12] MEDS: Meropenem 1 GM in Sodium Chloride 0.9% 100 ML IVPB SCH ×3 (02:40→19:57)
--- NOTE | 2017-08-12 07:56 | CP.PCM.PN ---
<ClarksantaHenrry barrett - Last Filed: 08/12/17 18:28> Subjective - Date & Time of Evaluation Date of Evaluation: 08/12/17 Time of Evaluation: 07:54 - Subjective Subjective: Patient seen and examined at bedside Doing well still complaining of throbbing headache Belly pain improved Nausea when she eats but no vomiting No other complaints at this time Objective - Vital Signs/Intake and Output Vital Signs (last 24 hours): Temp Pulse Resp BP Pulse Ox 98.6 F 80 20 115/71 97 08/12/17 05:30 08/12/17 00:00 08/12/17 00:00 08/12/17 00:00 08/12/17 00:00 Intake and Output: 08/12/17 08/12/17 06:59 18:59 Intake Total 1100 Balance 1100 - Medications Medications: Current Medications Albuterol/Ipratropium (Duoneb 3 Mg/0.5 Mg (3 Ml) Ud) 3 ml INH RQ6 PHILLIP Stop: 08/13/17 02:01 Guaifenesin (Robitussin) 100 mg PO Q4H PRN PRN Reason: Cough Meropenem 1 gm/ Sodium (Chloride) 100 mls @ 100 mls/hr IVPB Q8H PHILLIP PRN Reason: Protocol Last Admin: 08/12/17 02:40 Dose: 100 mls/hr Ibuprofen (Motrin Tab) 400 mg PO Q4H PRN PRN Reason: Fever >100.4 F Last Admin: 08/11/17 22:02 Dose: 400 mg Tramadol HCl (Ultram) 50 mg PO TID PRN PRN Reason: Headache - Labs Labs: 08/11/17 06:56 08/11/17 06:56 - Constitutional Appears: Well, No Acute Distress - Head Exam Head Exam: ATRAUMATIC, NORMAL INSPECTION, NORMOCEPHALIC - Eye Exam Eye Exam: EOMI, Normal appearance, PERRL Pupil Exam: NORMAL ACCOMODATION - ENT Exam ENT Exam: Mucous Membranes Moist - Neck Exam Neck Exam: Full ROM, Normal Inspection - Respiratory Exam Respiratory Exam: Clear to Ausculation Bilateral, NORMAL BREATHING PATTERN - Cardiovascular Exam Cardiovascular Exam: REGULAR RHYTHM. absent: Tachycardia - GI/Abdominal Exam GI & Abdominal Exam: Soft, Normal Bowel Sounds. absent: Distended, Tenderness - Neurological Exam Neurological Exam: Alert, Oriented x3 - Psychiatric Exam Psychiatric exam: Normal Affect, Normal Mood - Skin Skin Exam: Dry, Intact, Normal Color, Warm Assessment and Plan - Assessment and Plan (Free Text) Assessment: (1) Gram-negative sepsis Assessment & Plan: Urine culture negative Blood culture + for E. coli (Not ESBL) Echo is normal CT abdomen chest today shows RUL PNA as well as redemonstration of Left. pyelo. Will control pain with morphine as needed ID (Miguelina) on case, will follow her recommendations Merrem 1g IV Q8 NS @ 100 LP done on 08/10 Follow up the CSF cultures * fungal gram stain negative * no WBC or RBC * Glucose 54 * Protein 44 Patient has RUL PNA F/U Sputum cultures Duonebs Q4 x4 Doses Robitussin Q4H PRN Rise in liver enzymes most likely response from infection Status: Acute (2) Prophylactic measure Assessment & Plan: heparin q12 GI PPX not indicated Status: Acute <Tony Donis Jr. - Last Filed: 08/17/17 13:36> Objective - Vital Signs/Intake and Output Vital Signs (last 24 hours): Temp Pulse Resp BP Pulse Ox 99 F 75 20 103/66 97 08/16/17 15:00 08/16/17 15:00 08/16/17 15:00 08/16/17 15:00 08/16/17 15:00 - Labs Labs: 08/16/17 06:27 08/16/17 06:27 Attending/Attestation - Attestation I have personally seen and examined this patient.: Yes I have fully participated in the care of the patient.: Yes I have reviewed all pertinent clinical information, including history, physical exam and plan: Yes Notes (Text): 08/17/17 13:36 Agree with present and no findings and plan of care
[2017-08-12 08:54] LABS: BASO % 0.3 % (0.0-2.0); EOS % 0.3 % (0.0-4.0); HEMOGLOBIN 11.7 g/dL (11.0-16.0); LYMPH # 2.6 K/uL (1.0-4.3); LYMPH % 24.7 % (20.0-40.0); MEAN CELL VOLUME 85.1 fL (81.0-99.0); MEAN PLATELET VOLUME 9.5 fL (7.2-11.7); MONO # 0.8 K/uL (0.0-0.8); MONO % 7.3 % (0.0-10.0); NEUT # 7.2 K/uL (1.8-7.0); NEUT % 67.4 % (50.0-75.0); RBC 4.05 Mil/uL (3.80-5.20)
[2017-08-12 08:58] LABS: WHITE BLOOD COUNT 10.6 K/uL (4.8-10.8)
[2017-08-12 09:07] LABS: ALB/GLOB RATIO 0.8 (1.0-2.1); ALBUMIN 2.9 g/dL (3.5-5.0); ALT/SGPT 132 U/L (9-52); AST/SGOT 187 U/L (14-36); BLOOD UREA NITROGEN 12 mg/dL (7-17); GFR AFRICAN-AMERICAN > 60; GFR NON-AFRICAN AMERICAN > 60
[2017-08-12 11:35] LABS: % CD4 (T HELPER CELL) 45 Percent (30-61); % CD8 (SUPPRESSOR T CELL) 8 Percent (12-42); ABSOLUTE CD3 CELLS 662 Cells/mcL (840-3060); ABSOLUTE CD4 CELLS 555 Cells/mcL (490-1740); ABSOLUTE CD8 CELLS 105 Cells/mcL (180-1170); ABSOLUTE LYMPHOCYTES 1244 Cells/mcL (850-3900)
--- NOTE | 2017-08-12 17:41 | CP.PCM.CON ---
History of Present Illness - History of Present Illness History of Present Illness: 46 yr old woman who is consulted for possible meningitis. She had an LP done yesterday, and it was normal thus far, with cultures pending. On exam, the patient does not have meningismus, but does have a headache, that is 8/10 and is throbbing in nature. However, she has no photophobia, no nausea, no vomiting , no weakness, no other issues noted. PMH/PSH: FH/SH: All: on exam: Normal neurological examination Past Patient History - Infectious Disease Hx of Infectious Diseases: None - Past Medical History & Family History Past Medical History?: Yes - Past Social History Smoking Status: Never Smoked - CARDIAC Hx Cardiac Disorders: No - PULMONARY Hx Respiratory Disorders: No - NEUROLOGICAL Hx Neurological Disorder: No - HEENT Hx HEENT Problems: No - RENAL Hx Chronic Kidney Disease: No - ENDOCRINE/METABOLIC Hx Endocrine Disorders: No - HEMATOLOGICAL/ONCOLOGICAL Hx Blood Disorders: No - INTEGUMENTARY Hx Dermatological Problems: No - MUSCULOSKELETAL/RHEUMATOLOGICAL Hx Musculoskeletal Disorders: No Hx Falls: No - GASTROINTESTINAL Hx Gastrointestinal Disorders: No - GENITOURINARY/GYNECOLOGICAL Hx Genitourinary Disorders: No - PSYCHIATRIC Hx Depression: Yes Hx Substance Use: No - SURGICAL HISTORY Hx Surgeries: Yes Hx Section: Yes Hx Hysterectomy: Yes - ANESTHESIA Hx Anesthesia: Yes Hx Anesthesia Reactions: No Meds Allergies/Adverse Reactions: Allergies Allergy/AdvReac Type Severity Reaction Status Date / Time No Known Allergies Allergy Verified 08/07/17 12:27 - Medications Medications: Current Medications Acetaminophen (Tylenol 325mg Tab) 650 mg PO Q6 PRN PRN Reason: Fever >100.4 F Last Admin: 08/10/17 22:13 Dose: 650 mg Meropenem 1 gm/ Sodium (Chloride) 100 mls @ 100 mls/hr IVPB Q8H PHILLIP PRN Reason: Protocol Last Admin: 08/11/17 10:36 Dose: 100 mls/hr Sodium Chloride (Sodium Chloride 0.9%) 1,000 mls @ 100 mls/hr IV .Q10H PHILLIP Last Admin: 08/11/17 10:36 Dose: 100 mls/hr Vancomycin/Sodium Chloride (Vancomycin 1 Gm/Ns 200 Ml) 1 gm in 200 mls @ 166.6 mls/hr IVPB Q12H PHILLIP PRN Reason: Protocol Stop: 08/13/17 20:16 Last Admin: 08/11/17 09:15 Dose: 166.6 mls/hr Gentamicin Sulfate 80 mg/ (Sodium Chloride) 102 mls @ 100 mls/hr IVPB Q24H PHILLIP PRN Reason: Protocol Last Admin: 08/11/17 00:30 Dose: 100 mls/hr Acyclovir 500 mg/ Sodium (Chloride) 100 mls @ 100 mls/hr IV Q8H PHILLIP PRN Reason: Protocol Last Admin: 08/11/17 05:40 Dose: 100 mls/hr Ibuprofen (Motrin Tab) 400 mg PO Q4H PRN PRN Reason: Fever >100.4 F Last Admin: 08/11/17 09:33 Dose: 400 mg Results - Vital Signs Recent Vital Signs: Last Vital Signs Temp 97.6 F 08/11/17 07:49 Pulse 95 H 08/11/17 07:49 Resp 20 08/11/17 07:49 BP 99/65 L 08/11/17 07:49 Pulse Ox 95 08/11/17 07:49 - Labs Result Diagrams: 08/12/17 08:45 08/12/17 08:45 Labs: Laboratory Results - last 24 hr 08/10/17 08/10/17 08/10/17 16:52 19:29 19:56 WBC RBC Hgb Hct MCV MCH MCHC RDW Plt Count MPV Neut % (Auto) Lymph % (Auto) Bay % (Auto) Eos % (Auto) Baso % (Auto) Neut # (Auto) Lymph # (Auto) Bay # (Auto) Eos # (Auto) Baso # (Auto) Sodium Potassium Chloride Carbon Dioxide Anion Gap BUN Creatinine Est GFR ( Amer) Est GFR (Non-Af Amer) Random Glucose Calcium Total Bilirubin AST ALT Alkaline Phosphatase Lactate Dehydrogenase Total Protein Albumin Globulin Albumin/Globulin Ratio Fluid Type CSF Volume CSF Appearance CSF WBC CSF RBC CSF Total Cell Counted CSF Monos/Macrophages CSF Comment CSF Glucose CSF Total Protein Vancomycin Trough 5.8 HSV Source Description HIV 1&2 Antibody Screen Negative H.influenzae Type B Ag Negative Blood Parasites Smear N.meningitidis ACY/W135 Negative N.meningi B/E.coli K1 Ag Negative Group B Strep Antigen Negative S. pneumoniae Antigen Negative 08/10/17 08/10/17 08/10/17 21:34 21:43 21:43 WBC RBC Hgb Hct MCV MCH MCHC RDW Plt Count MPV Neut % (Auto) Lymph % (Auto) Bay % (Auto) Eos % (Auto) Baso % (Auto) Neut # (Auto) Lymph # (Auto) Bay # (Auto) Eos # (Auto) Baso # (Auto) Sodium Potassium Chloride Carbon Dioxide Anion Gap BUN Creatinine Est GFR ( Amer) Est GFR (Non-Af Amer) Random Glucose Calcium Total Bilirubin AST ALT Alkaline Phosphatase Lactate Dehydrogenase Total Protein Albumin Globulin Albumin/Globulin Ratio Fluid Type Spinal fluid CSF Volume 2 H CSF Appearance Clear/colorless CSF WBC 0.0 CSF RBC 0.0 CSF Total Cell Counted TEST NOT PERFORMED CSF Monos/Macrophages TEST NOT PERFORMED CSF Comment TEST NOT PERFORMED CSF Glucose 54 CSF Total Protein 44.0 Vancomycin Trough HSV Source Description Fluid HIV 1&2 Antibody Screen H.influenzae Type B Ag Blood Parasites Smear N.meningitidis ACY/W135 N.meningi B/E.coli K1 Ag Group B Strep Antigen S. pneumoniae Antigen 08/11/17 08/11/17 08/11/17 06:56 06:56 06:56 WBC 5.3 RBC 4.46 Hgb 12.7 Hct 37.7 MCV 84.5 MCH 28.6 MCHC 33.8 RDW 15.1 H Plt Count 177 MPV 9.9 Neut % (Auto) 75.7 H Lymph % (Auto) 19.1 L Bay % (Auto) 4.1 Eos % (Auto) 0.1 Baso % (Auto) 1.0 Neut # (Auto) 4.0 Lymph # (Auto) 1.0 Bay # (Auto) 0.2 Eos # (Auto) 0.0 Baso # (Auto) 0.1 Sodium 142 Potassium 3.7 Chloride 104 Carbon Dioxide 24 Anion Gap 18 BUN 11 Creatinine 0.6 L Est GFR ( Amer) > 60 Est GFR (Non-Af Amer) > 60 Random Glucose 147 H Calcium 7.9 L Total Bilirubin 0.7 AST 110 H D ALT 89 H D Alkaline Phosphatase 237 H D Lactate Dehydrogenase 799 H Total Protein 6.9 Albumin 3.0 L Globulin 3.9 Albumin/Globulin Ratio 0.8 L Fluid Type CSF Volume CSF Appearance CSF WBC CSF RBC CSF Total Cell Counted CSF Monos/Macrophages CSF Comment CSF Glucose CSF Total Protein Vancomycin Trough 6.7 HSV Source Description HIV 1&2 Antibody Screen H.influenzae Type B Ag Blood Parasites Smear Negative N.meningitidis ACY/W135 N.meningi B/E.coli K1 Ag Group B Strep Antigen S. pneumoniae Antigen
--- NOTE | 2017-08-12 20:08 | CP.PCM.PN ---
Subjective - Date & Time of Evaluation Date of Evaluation: 08/12/17 Time of Evaluation: 20:08 - Subjective Subjective: CHIEF COMPLAINTS TODAY : TEMP TRENDING DOWN STILL C/O GARCIA LT FLANK PAIN S/P LP -VE ROS. HEENT : N. Resp : No SOB wheezing, cough Cardio : No CP, PND orthopnea GI : LT.FLANK PAIN. 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 Musculoskel : N Ext. : Pedal pulses intact, no edema or calf pain Derm : N Psych : N. PE. Pt. is alert awake in no distress. V.S As noted in the chart Head ,ear nose,throat and eyes : Normal. Neck : Supple with normal carotids. Lungs: DIMINISHED BREATH SOUNDS AT THE BASES. Heart : S1 ,S2 REGULAR, TACHYCARDIC Abd : MILD TENDERNESS LEFT FLANK, with normal bowel sounds. Neuro : Moves all ext. with no localized deficit. Ext : No edema with intact pulses. Neg. calf tenderness Derm : No rashes or decubitus ulcer. Radiology/Labs . CSF -CULTURE NEGATIVE FOR 2 DAYS. CHEST X-RAY - PVC suboptimal inspiratory effort. BLOOD CULTURE +VE E.COLI S-MERREM,GENT,CIPRO REPEAT BLOOD CULTURE 08/12/17 -VE X 24 HOURS URINE CULTURES NEGATIVE GROWTH. INCREASING TRANSAMINITIS ? MOTRIN VS INFECTION CT SINUSES - UNREMARKABLE HEPATITIS SCREEN -VE Objective - Vital Signs/Intake and Output Vital Signs (last 24 hours): Temp Pulse Resp BP Pulse Ox 98.2 F 70 20 111/70 98 08/12/17 15:00 08/12/17 16:48 08/12/17 15:00 08/12/17 16:48 08/12/17 15:00 - Medications Medications: Current Medications Albuterol/Ipratropium (Duoneb 3 Mg/0.5 Mg (3 Ml) Ud) 3 ml INH RQ6 PHILLIP Stop: 08/13/17 02:01 Last Admin: 08/12/17 13:22 Dose: 3 ml Guaifenesin (Robitussin) 100 mg PO Q4H PRN PRN Reason: Cough Meropenem 1 gm/ Sodium (Chloride) 100 mls @ 100 mls/hr IVPB Q8H PHILLIP PRN Reason: Protocol Last Admin: 08/12/17 19:57 Dose: 100 mls/hr Ibuprofen (Motrin Tab) 400 mg PO Q4H PRN PRN Reason: Fever >100.4 F Last Admin: 08/12/17 08:54 Dose: 400 mg Tramadol HCl (Ultram) 50 mg PO TID PRN PRN Reason: Headache - Labs Labs: 08/12/17 08:45 08/12/17 08:45 Assessment and Plan (1) Gram-negative sepsis Assessment & Plan: SOURCE OF GRAM-NEGATIVE SEPSIS NOT VERY CLEAR-MOST PROBABLE VS INTRA- ABDOMINAL CONTINUE iv MERREM 1 G EVERY 8 HOURLY.08/08/16. OFF iv VANCOMYCIN . WILL GET CERETAC SCAN ABDOMEN R/O INTRAABDOMINAL ABSCESS Status: Acute (2) Pneumonia Status: Acute (3) Headache Status: Acute (4) Elev transaminase/LDH Assessment & Plan: LFTS 08/12/17 NOTED ? MOTRIN VS INFECTION DECREASE MOTRIN 400MG BID PRN FOR HEADACHE. HEPATITIS PROFILE A,B,C. HEPATIC /GB US R/O DILATED DUCTS /STONES Status: Acute
[2017-08-12 23:31] LABS: CK-MB < 0.22 ng/mL (0.0-3.38)
[2017-08-13] MEDS: Albuterol-Ipratrop 3 mg / 0.5 (3 ml) UD INH SCH (02:07)
[2017-08-13] MEDS: Meropenem 1 GM in Sodium Chloride 0.9% 100 ML IVPB SCH ×3 (02:30→21:46)
[2017-08-13 05:45] LABS: TB ANTIGEN MINUS NIL 0.17 IU/mL
[2017-08-13 09:15] LABS: BASO % 0.3 % (0.0-2.0); EOS # 0.2 K/uL (0.0-0.7); EOS % 1.6 % (0.0-4.0); HEMOGLOBIN 11.7 g/dL (11.0-16.0); LYMPH # 2.3 K/uL (1.0-4.3); LYMPH % 25.1 % (20.0-40.0); MEAN CORPUSCULAR HEMOGLOBIN 28.7 pg (27.0-31.0); MEAN CORPUSCULAR HGB CONC 33.7 g/dL (33.0-37.0); MEAN PLATELET VOLUME 8.8 fL (7.2-11.7); MONO # 0.8 K/uL (0.0-0.8); MONO % 8.1 % (0.0-10.0); NEUT # 6.1 K/uL (1.8-7.0); NEUT % 64.9 % (50.0-75.0); NRBC % 0.1 % (0.0-2.0); RBC 4.08 Mil/uL (3.80-5.20); RED CELL DISTRIBUTION WIDTH 15.2 % (11.5-14.5); WHITE BLOOD COUNT 9.4 K/uL (4.8-10.8)
[2017-08-13 09:33] LABS: ALB/GLOB RATIO 0.9 (1.0-2.1); ALBUMIN 3.2 g/dL (3.5-5.0); ALT/SGPT 104 U/L (9-52); AST/SGOT 78 U/L (14-36); BILIRUBIN,DIRECT 0.4 mg/dL (0.0-0.4); BLOOD UREA NITROGEN 10 mg/dL (7-17); CALCIUM 8.2 mg/dl (8.6-10.4); GFR AFRICAN-AMERICAN > 60; GFR NON-AFRICAN AMERICAN > 60
[2017-08-13 09:52] LABS: HEPATITIS B SURFACE AG Negative (NEGATIVE)
[2017-08-13 09:58] LABS: HEPATITIS A IGM NEGATIVE (NEGATIVE); HEPATITIS B CORE AB NEGATIVE (NEGATIVE)
[2017-08-13 10:10] LABS: HEPATITIS C ANTIBODY NEGATIVE (NEGATIVE)
--- NOTE | 2017-08-13 10:33 | US ---
HISTORY: abdominal pain COMPARISON: None. TECHNIQUE: Sonographic evaluation of the right upper quadrant of the abdomen. FINDINGS: LIVER: Measures 19.4 cm in length. Diffusely increased echogenicity of the liver parenchyma is concordant with fatty liver pattern seen in CT 08/10/2017. 4.0 x 3.9 x 4.2 cm hypoechoic structure seen at the mid to inferior right lobe liver posteriorly with no associated color Doppler blood flow. This may reflect an area of focal fatty sparing though an intrinsic lesion is not excluded here. No lesions identified in the right lobe liver in the prior CT but there is no intravenous contrast utilized in that study. There is borderline hepatomegaly. No definitive intrahepatic bile duct dilatation. GALLBLADDER: Unremarkable. No gallstones. COMMON BILE DUCT: Measures 4.9 mm. No stones. No dilatation. PANCREAS: Unremarkable as visualized. No mass. No ductal dilatation. RIGHT KIDNEY: Measures 10.9 cm in length. Normal echogenicity. No calculus, mass, or hydronephrosis. AORTA: No aneurysmal dilatation. IVC: Unremarkable. OTHER FINDINGS: None . IMPRESSION: 1. 4.2 cm hypoechoic focus is seen in the right lobe liver with diffuse fatty infiltration evident. This may represent focal fatty sparing though intrinsic mass is not excluded here. Follow-up MRI is advised without contrast for additional evaluation. 2. Borderline hepatomegaly. 3. The remainder of the examination appears unremarkable.
[2017-08-13 16:04] LABS: SPECIMEN SOURCE CSF
--- NOTE | 2017-08-13 22:11 | CP.PCM.PN ---
<MatthewHenrry barrett - Last Filed: 08/13/17 22:09> Subjective - Date & Time of Evaluation Date of Evaluation: 08/13/17 Time of Evaluation: 22:09 - Subjective Subjective: Patient seen and examined at bedside doing much better complaining of headache belly pain resolved no pain with urination Objective - Vital Signs/Intake and Output Vital Signs (last 24 hours): Temp Pulse Resp BP Pulse Ox 98.4 F 93 H 20 99/64 L 97 08/13/17 16:00 08/13/17 16:00 08/13/17 16:00 08/13/17 16:00 08/13/17 16:00 Intake and Output: 08/13/17 08/14/17 18:59 06:59 Intake Total 580 Balance 580 - Medications Medications: Current Medications Guaifenesin (Robitussin) 100 mg PO Q4H PRN PRN Reason: Cough Last Admin: 08/12/17 22:52 Dose: 100 mg Meropenem 1 gm/ Sodium (Chloride) 100 mls @ 100 mls/hr IVPB Q8 PHILLIP PRN Reason: Protocol Last Admin: 08/13/17 21:46 Dose: 100 mls/hr Ibuprofen (Motrin Tab) 400 mg PO BID PHILLIP Last Admin: 08/13/17 18:39 Dose: 400 mg Tramadol HCl (Ultram) 50 mg PO TID PRN PRN Reason: Headache Last Admin: 08/13/17 15:16 Dose: 50 mg - Labs Labs: 08/13/17 08:57 08/13/17 08:57 - Constitutional Appears: Well - Head Exam Head Exam: ATRAUMATIC, NORMAL INSPECTION, NORMOCEPHALIC - Eye Exam Eye Exam: EOMI, Normal appearance, PERRL Pupil Exam: NORMAL ACCOMODATION, PERRL - ENT Exam ENT Exam: Mucous Membranes Moist, Normal Exam - Neck Exam Neck Exam: Full ROM, Normal Inspection. absent: Lymphadenopathy - Respiratory Exam Respiratory Exam: Clear to Ausculation Bilateral, NORMAL BREATHING PATTERN - Cardiovascular Exam Cardiovascular Exam: REGULAR RHYTHM, +S1, +S2. absent: Murmur - GI/Abdominal Exam GI & Abdominal Exam: Soft, Normal Bowel Sounds. absent: Tenderness - Extremities Exam Extremities Exam: Full ROM, Normal Capillary Refill, Normal Inspection. absent : Joint Swelling, Pedal Edema - Back Exam Back Exam: NORMAL INSPECTION - Neurological Exam Neurological Exam: Alert, Awake, CN II-XII Intact, Normal Gait, Oriented x3 - Psychiatric Exam Psychiatric exam: Normal Affect, Normal Mood - Skin Skin Exam: Dry, Intact, Normal Color, Warm Assessment and Plan - Assessment and Plan (Free Text) Assessment: (1) Gram-negative sepsis Assessment & Plan: Urine culture negative Blood culture + for E. coli (Not ESBL) Echo is normal CT abdomen chest today shows RUL PNA as well as redemonstration of Left. pyelo. Will control pain with morphine as needed ID (Miguelina) on case, will follow her recommendations Merrem 1g IV Q8 NS @ 100 LP done on 08/10 Follow up the CSF cultures * fungal gram stain negative * no WBC or RBC * Glucose 54 * Protein 44 Patient has RUL PNA F/U Sputum cultures Duonebs Q4 x4 Doses Robitussin Q4H PRN Rise in liver enzymes most likely response from infection Status: Acute (2) Prophylactic measure Assessment & Plan: heparin q12 GI PPX not indicated Status: Acute <Tony Donis Jr. - Last Filed: 08/17/17 13:39> Objective - Vital Signs/Intake and Output Vital Signs (last 24 hours): Temp Pulse Resp BP Pulse Ox 99 F 75 20 103/66 97 08/16/17 15:00 08/16/17 15:00 08/16/17 15:00 08/16/17 15:00 08/16/17 15:00 - Labs Labs: 08/16/17 06:27 08/16/17 06:27 Attending/Attestation - Attestation I have personally seen and examined this patient.: Yes I have fully participated in the care of the patient.: Yes I have reviewed all pertinent clinical information, including history, physical exam and plan: Yes Notes (Text): 08/17/17 13:39 Agree with resident note findings and plan of care
--- NOTE | 2017-08-13 23:56 | CP.PCM.PN ---
Subjective - Date & Time of Evaluation Date of Evaluation: 08/13/17 Time of Evaluation: 23:56 - Subjective Subjective: CHIEF COMPLAINTS TODAY : afebrile STILL C/O GARCIA LT FLANK PAIN S/P LP -VE ROS. HEENT : N. Resp : No SOB wheezing, cough Cardio : No CP, PND orthopnea GI : LT.FLANK PAIN. 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 Musculoskel : N Ext. : Pedal pulses intact, no edema or calf pain Derm : N Psych : N. PE. Pt. is alert awake in no distress. V.S As noted in the chart Head ,ear nose,throat and eyes : Normal. Neck : Supple with normal carotids. Lungs: DIMINISHED BREATH SOUNDS AT THE BASES. Heart : S1 ,S2 REGULAR, TACHYCARDIC Abd : MILD TENDERNESS LEFT FLANK, with normal bowel sounds. Neuro : Moves all ext. with no localized deficit. Ext : No edema with intact pulses. Neg. calf tenderness Derm : No rashes or decubitus ulcer. Radiology/Labs . CSF -CULTURE NEGATIVE FOR 2 DAYS. Echo is normal CHEST X-RAY - PVC suboptimal inspiratory effort. BLOOD CULTURE +VE E.COLI S-MERREM,GENT,CIPRO REPEAT BLOOD CULTURE 08/12/17 -VE X 24 HOURS URINE CULTURES NEGATIVE GROWTH. INCREASING TRANSAMINITIS ? MOTRIN VS INFECTION repeat LFTS IMPROVING. CT SINUSES - UNREMARKABLE HEPATITIS SCREEN -VE Objective - Vital Signs/Intake and Output Vital Signs (last 24 hours): Temp Pulse Resp BP Pulse Ox 98.4 F 93 H 20 99/64 L 97 08/13/17 16:00 08/13/17 16:00 08/13/17 16:00 08/13/17 16:00 08/13/17 16:00 Intake and Output: 08/13/17 08/14/17 18:59 06:59 Intake Total 580 Balance 580 - Medications Medications: Current Medications Guaifenesin (Robitussin) 100 mg PO Q4H PRN PRN Reason: Cough Last Admin: 08/12/17 22:52 Dose: 100 mg Meropenem 1 gm/ Sodium (Chloride) 100 mls @ 100 mls/hr IVPB Q8 PHILLIP PRN Reason: Protocol Last Admin: 08/13/17 21:46 Dose: 100 mls/hr Ibuprofen (Motrin Tab) 400 mg PO BID PHILLIP Last Admin: 08/13/17 18:39 Dose: 400 mg Tramadol HCl (Ultram) 50 mg PO TID PRN PRN Reason: Headache Last Admin: 08/13/17 15:16 Dose: 50 mg - Labs Labs: 08/13/17 08:57 08/13/17 08:57 Assessment and Plan (1) Gram-negative sepsis Assessment & Plan: SOURCE OF GRAM-NEGATIVE SEPSIS NOT VERY CLEAR-MOST PROBABLE VS INTRA- ABDOMINAL CONTINUE iv MERREM 1 G EVERY 8 HOURLY.08/08/16. OFF iv VANCOMYCIN . WILL GET CERETAC SCAN ABDOMEN R/O INTRAABDOMINAL ABSCESS -P CASE DISCUSSED WITH RESIDENT. Status: Acute (2) Pneumonia Assessment & Plan: COUGH IMPROVED. QFT-GOLD TB TEST -P. Status: Acute (3) Headache Status: Acute (4) Elev transaminase/LDH Assessment & Plan: IMPROVING. F/U HEPATIC US. HEPATITIS SCREEN -VE Status: Acute
[2017-08-14] MEDS: Meropenem 1 GM in Sodium Chloride 0.9% 100 ML IVPB SCH ×3 (05:29→21:15)
--- NOTE | 2017-08-14 09:33 | CP.PCM.PN ---
<Henrry Melara - Last Filed: 08/14/17 14:59> Subjective - Date & Time of Evaluation Date of Evaluation: 08/14/17 Time of Evaluation: 09:30 - Subjective Subjective: Patient seen and examined at bedside Doing well States her pain is much improved. Denies fever, chills, nausea, vomiting GARCIA resolved Tolerating diet Objective - Vital Signs/Intake and Output Vital Signs (last 24 hours): Temp Pulse Resp BP Pulse Ox 98.4 F 70 20 98/62 L 98 08/14/17 08:07 08/14/17 08:07 08/14/17 08:07 08/14/17 08:07 08/14/17 08:07 Intake and Output: 08/14/17 08/14/17 06:59 18:59 Intake Total 1020 Balance 1020 - Medications Medications: Current Medications Guaifenesin (Robitussin) 100 mg PO Q4H PRN PRN Reason: Cough Last Admin: 08/12/17 22:52 Dose: 100 mg Meropenem 1 gm/ Sodium (Chloride) 100 mls @ 100 mls/hr IVPB Q8 PHILLIP PRN Reason: Protocol Last Admin: 08/14/17 05:29 Dose: 100 mls/hr Ibuprofen (Motrin Tab) 400 mg PO Q12H PRN PRN Reason: Headache Tramadol HCl (Ultram) 50 mg PO TID PRN PRN Reason: Headache Last Admin: 08/14/17 09:17 Dose: 50 mg - Labs Labs: 08/13/17 08:57 08/13/17 08:57 - Constitutional Appears: Well - Head Exam Head Exam: ATRAUMATIC, NORMAL INSPECTION, NORMOCEPHALIC - Eye Exam Eye Exam: EOMI, Normal appearance, PERRL Pupil Exam: NORMAL ACCOMODATION, PERRL - ENT Exam ENT Exam: Mucous Membranes Moist, Normal Exam - Neck Exam Neck Exam: Full ROM, Normal Inspection. absent: Lymphadenopathy - Respiratory Exam Respiratory Exam: Clear to Ausculation Bilateral, NORMAL BREATHING PATTERN - Cardiovascular Exam Cardiovascular Exam: REGULAR RHYTHM, +S1, +S2. absent: Murmur - GI/Abdominal Exam GI & Abdominal Exam: Soft, Normal Bowel Sounds. absent: Distended, Tenderness - Extremities Exam Extremities Exam: Normal Inspection. absent: Joint Swelling, Pedal Edema - Back Exam Back Exam: NORMAL INSPECTION - Neurological Exam Neurological Exam: Alert, Awake, CN II-XII Intact, Normal Gait, Oriented x3 - Psychiatric Exam Psychiatric exam: Normal Affect, Normal Mood - Skin Skin Exam: Dry, Intact, Normal Color, Warm Assessment and Plan - Assessment and Plan (Free Text) Assessment: (1) Gram-negative sepsis Assessment & Plan: Urine culture negative Blood culture + for E. coli (Not ESBL) - repeat BC negative Echo is normal CT abdomen chest shows RUL PNA as well as redemonstration of Left. pyelo. Will control pain with morphine as needed ID (Miguelina) on case, will follow her recommendations Merrem 1g IV Q8 LP done on 08/10 CSF studies unremarkable Quantiferon negative Patient has RUL PNA Duonebs Q4 x4 Doses Robitussin Q4H PRN Rise in liver enzymes most likely response from infection Ceretec scan on tuesday Status: Acute (2) Prophylactic measure Assessment & Plan: Lovenox 30 SC QD GI PPX not indicated SCD Status: Acute <Tony Donis Jr. - Last Filed: 08/17/17 13:41> Objective - Vital Signs/Intake and Output Vital Signs (last 24 hours): Temp Pulse Resp BP Pulse Ox 99 F 75 20 103/66 97 08/16/17 15:00 08/16/17 15:00 08/16/17 15:00 08/16/17 15:00 08/16/17 15:00 - Labs Labs: 08/16/17 06:27 08/16/17 06:27 Attending/Attestation - Attestation I have personally seen and examined this patient.: Yes I have fully participated in the care of the patient.: Yes I have reviewed all pertinent clinical information, including history, physical exam and plan: Yes Notes (Text): 08/17/17 13:41 Agree with the resident note findings and plan of care
[2017-08-14] MEDS: Enoxaparin 30 mg Syringe SC SCH (09:43)
[2017-08-14 11:01] LABS: BASO # 0.1 K/uL (0.0-0.2); BASO % 0.7 % (0.0-2.0); EOS # 0.2 K/uL (0.0-0.7); EOS % 1.8 % (0.0-4.0); HEMOGLOBIN 11.7 g/dL (11.0-16.0); LYMPH # 2.3 K/uL (1.0-4.3); LYMPH % 19.8 % (20.0-40.0); MEAN CELL VOLUME 85.4 fL (81.0-99.0); MEAN CORPUSCULAR HGB CONC 33.9 g/dL (33.0-37.0); MEAN PLATELET VOLUME 8.4 fL (7.2-11.7); MONO # 0.7 K/uL (0.0-0.8); MONO % 6.5 % (0.0-10.0); NEUT # 8.2 K/uL (1.8-7.0); NEUT % 71.2 % (50.0-75.0); RBC 4.05 Mil/uL (3.80-5.20); RED CELL DISTRIBUTION WIDTH 15.1 % (11.5-14.5); WHITE BLOOD COUNT 11.5 K/uL (4.8-10.8)
[2017-08-14 11:08] LABS: ALB/GLOB RATIO 0.9 (1.0-2.1); ALBUMIN 3.2 g/dL (3.5-5.0); ALT/SGPT 80 U/L (9-52); AST/SGOT 47 U/L (14-36); BLOOD UREA NITROGEN 11 mg/dL (7-17); CALCIUM 8.2 mg/dl (8.6-10.4); GFR AFRICAN-AMERICAN > 60; GFR NON-AFRICAN AMERICAN > 60
[2017-08-14 19:48] LABS: SOURCE CSF
[2017-08-15] MEDS: Meropenem 1 GM in Sodium Chloride 0.9% 100 ML IVPB SCH ×3 (05:58→22:32)
[2017-08-15] MEDS: Enoxaparin 30 mg Syringe SC SCH (10:06)
[2017-08-15 11:41] LABS: BASO # 0.1 K/uL (0.0-0.2); BASO % 0.4 % (0.0-2.0); EOS # 0.1 K/uL (0.0-0.7); HEMOGLOBIN 11.6 g/dL (11.0-16.0); LYMPH # 1.8 K/uL (1.0-4.3); MEAN CELL VOLUME 86.3 fL (81.0-99.0); MEAN CORPUSCULAR HEMOGLOBIN 28.9 pg (27.0-31.0); MEAN CORPUSCULAR HGB CONC 33.5 g/dL (33.0-37.0); MEAN PLATELET VOLUME 8.3 fL (7.2-11.7); MONO # 0.6 K/uL (0.0-0.8); MONO % 4.3 % (0.0-10.0); NEUT # 10.3 K/uL (1.8-7.0); NEUT % 80.3 % (50.0-75.0); RBC 4.02 Mil/uL (3.80-5.20); RED CELL DISTRIBUTION WIDTH 14.6 % (11.5-14.5); WHITE BLOOD COUNT 12.9 K/uL (4.8-10.8)
[2017-08-15 12:15] LABS: ALBUMIN 3.3 g/dL (3.5-5.0); BLOOD UREA NITROGEN 11 mg/dL (7-17); CALCIUM 8.4 mg/dl (8.6-10.4); GFR AFRICAN-AMERICAN > 60; GFR NON-AFRICAN AMERICAN > 60
[2017-08-15 12:16] LABS: ALB/GLOB RATIO 0.8 (1.0-2.1); ALT/SGPT 62 U/L (9-52); AST/SGOT 42 U/L (14-36)
--- NOTE | 2017-08-15 16:30 | CP.PCM.PN ---
<Henrry Melara - Last Filed: 08/15/17 16:27> Subjective - Date & Time of Evaluation Date of Evaluation: 08/15/17 Time of Evaluation: 16:27 - Subjective Subjective: Patient seen and examined at bedside Doing well Still complaining of headache. No other complaints at this time Objective - Vital Signs/Intake and Output Vital Signs (last 24 hours): Temp Pulse Resp BP Pulse Ox 98.3 F 74 20 105/67 96 08/15/17 07:33 08/15/17 07:33 08/15/17 07:33 08/15/17 07:33 08/15/17 07:33 Intake and Output: 08/15/17 08/15/17 06:59 18:59 Intake Total 1100 580 Balance 1100 580 - Medications Medications: Current Medications Enoxaparin Sodium (Lovenox) 30 mg SC DAILY [facility] Last Admin: 08/15/17 10:06 Dose: 30 mg Guaifenesin (Robitussin) 100 mg PO Q4H PRN PRN Reason: Cough Last Admin: 08/12/17 22:52 Dose: 100 mg Meropenem 1 gm/ Sodium (Chloride) 100 mls @ 100 mls/hr IVPB Q8 PHILLIP PRN Reason: Protocol Last Admin: 08/15/17 14:09 Dose: 100 mls/hr Ibuprofen (Motrin Tab) 400 mg PO Q12H PRN PRN Reason: Headache Last Admin: 08/14/17 18:29 Dose: 400 mg Paroxetine HCl (Paxil) 20 mg PO DAILY [facility] Last Admin: 08/15/17 10:06 Dose: 20 mg - Labs Labs: 08/15/17 11:34 08/15/17 11:34 - Constitutional Appears: Well - Head Exam Head Exam: ATRAUMATIC, NORMAL INSPECTION, NORMOCEPHALIC - Eye Exam Eye Exam: EOMI, Normal appearance, PERRL Pupil Exam: NORMAL ACCOMODATION, PERRL - ENT Exam ENT Exam: Mucous Membranes Moist, Normal Exam - Neck Exam Neck Exam: Full ROM, Normal Inspection. absent: Lymphadenopathy - Respiratory Exam Respiratory Exam: Clear to Ausculation Bilateral, NORMAL BREATHING PATTERN - Cardiovascular Exam Cardiovascular Exam: REGULAR RHYTHM, +S1, +S2. absent: Murmur - GI/Abdominal Exam GI & Abdominal Exam: Soft, Normal Bowel Sounds. absent: Tenderness - Extremities Exam Extremities Exam: Full ROM, Normal Capillary Refill, Normal Inspection. absent : Joint Swelling, Pedal Edema - Back Exam Back Exam: NORMAL INSPECTION - Neurological Exam Neurological Exam: Alert, Awake, CN II-XII Intact, Normal Gait, Oriented x3 - Psychiatric Exam Psychiatric exam: Normal Affect, Normal Mood - Skin Skin Exam: Dry, Intact, Normal Color, Warm Assessment and Plan - Assessment and Plan (Free Text) Assessment: (1) Gram-negative sepsis Assessment & Plan: Urine culture negative Blood culture + for E. coli (Not ESBL) - repeat BC negative Echo is normal CT abdomen chest shows RUL PNA as well as redemonstration of Left. pyelo. Will control pain with morphine as needed ID (Miguelina) on case, will follow her recommendations Merrem 1g IV Q8 LP done on 08/10 CSF studies unremarkable Quantiferon negative Patient has RUL PNA Duonebs Q4 x4 Doses Robitussin Q4H PRN Rise in liver enzymes most likely response from infection Ceretec scan to be completed tomorrow, F/U Status: Acute (2) Prophylactic measure Assessment & Plan: Lovenox 30 SC QD GI PPX not indicated SCD Status: Acute <Tony Donis Jr. - Last Filed: 08/17/17 13:44> Objective - Vital Signs/Intake and Output Vital Signs (last 24 hours): Temp Pulse Resp BP Pulse Ox 99 F 75 20 103/66 97 08/16/17 15:00 08/16/17 15:00 08/16/17 15:00 08/16/17 15:00 08/16/17 15:00 - Labs Labs: 08/16/17 06:27 08/16/17 06:27 Attending/Attestation - Attestation I have personally seen and examined this patient.: Yes I have fully participated in the care of the patient.: Yes I have reviewed all pertinent clinical information, including history, physical exam and plan: Yes Notes (Text): 08/17/17 13:44 Agree with resident note findings and plan of care
--- NOTE | 2017-08-15 18:39 | CP.PCM.PN ---
Subjective - Date & Time of Evaluation Date of Evaluation: 08/15/17 Time of Evaluation: 18:39 - Subjective Subjective: CHIEF COMPLAINTS TODAY : afebrile STILL C/O GARCIA OFF/ON LT FLANK PAIN-MUCH IMPROVED S/P LP -VE ROS. HEENT : N. Resp : No SOB wheezing, cough Cardio : No CP, PND orthopnea GI : LT.FLANK PAIN IMPROVING. 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 Musculoskel : N Ext. : Pedal pulses intact, no edema or calf pain Derm : N Psych : N. PE. Pt. is alert awake in no distress. V.S As noted in the chart Head ,ear nose,throat and eyes : Normal. Neck : Supple with normal carotids. Lungs: DIMINISHED BREATH SOUNDS AT THE BASES. Heart : S1 ,S2 REGULAR, TACHYCARDIC Abd : SOFT ,NON TENDER LT. FLANK, with normal bowel sounds. Neuro : Moves all ext. with no localized deficit. Ext : No edema with intact pulses. Neg. calf tenderness Derm : No rashes or decubitus ulcer. Radiology/Labs . CSF -CULTURE NEGATIVE FOR 2 DAYS. Echo is normal CHEST X-RAY - PVC suboptimal inspiratory effort. BLOOD CULTURE +VE E.COLI S-MERREM,GENT,CIPRO REPEAT BLOOD CULTURE 08/12/17 -VE TO DATE URINE CULTURES NEGATIVE GROWTH. IMPROVING TRANSAMINITIS ? MOTRIN VS INFECTION CT SINUSES - UNREMARKABLE HEPATITIS SCREEN -VE Objective - Vital Signs/Intake and Output Vital Signs (last 24 hours): Temp Pulse Resp BP Pulse Ox 98.3 F 74 20 105/67 96 08/15/17 07:33 08/15/17 07:33 08/15/17 07:33 08/15/17 07:33 08/15/17 07:33 Intake and Output: 08/15/17 08/15/17 06:59 18:59 Intake Total 1100 580 Balance 1100 580 - Medications Medications: Current Medications Enoxaparin Sodium (Lovenox) 30 mg SC DAILY [facility] Last Admin: 08/15/17 10:06 Dose: 30 mg Guaifenesin (Robitussin) 100 mg PO Q4H PRN PRN Reason: Cough Last Admin: 08/12/17 22:52 Dose: 100 mg Meropenem 1 gm/ Sodium (Chloride) 100 mls @ 100 mls/hr IVPB Q8 PHILLIP PRN Reason: Protocol Last Admin: 08/15/17 14:09 Dose: 100 mls/hr Ibuprofen (Motrin Tab) 400 mg PO Q12H PRN PRN Reason: Headache Last Admin: 08/14/17 18:29 Dose: 400 mg Paroxetine HCl (Paxil) 20 mg PO DAILY PHILLIP Last Admin: 08/15/17 10:06 Dose: 20 mg - Labs Labs: 08/15/17 11:34 08/15/17 11:34 Assessment and Plan (1) Gram-negative sepsis Assessment & Plan: SOURCE OF GRAM-NEGATIVE SEPSIS NOT VERY CLEAR-MOST PROBABLE VS INTRA- ABDOMINAL CONTINUE iv MERREM 1 G EVERY 8 HOURLY.08/08/17 CERETAC SCAN ABDOMEN R/O INTRAABDOMINAL ABSCESS -P CASE DISCUSSED WITH PT AND FAMILY. Status: Acute (2) Pneumonia Status: Acute (3) Headache Assessment & Plan: LP -VE, HEADACHE ?VASCULAR VS MIGRAINE. F/U WITH NEURO OUT PT. Status: Acute (4) Elev transaminase/LDH Assessment & Plan: LFTS IMPROVING. GALLBLADDER/HEPATIC ULTRASOUND NOTED. 4.2 CM HYPOECHOIC FOCUS SEEN RT.LOBE LIVER WITH DIFFUSE FATTY INFILTRATION ?FOCAL FATTY SPARING VS INTRINSIC MASS . fOLLOW-UP WITH MRI LIVER SUGGESTED BY RADIOLOGY. WILL DISCUSS WITH PMD/AND RADIOLOGY Status: Acute
[2017-08-16] MEDS: Meropenem 1 GM in Sodium Chloride 0.9% 100 ML IVPB SCH ×2 (05:23→14:56)
[2017-08-16 06:35] LABS: BASO # 0.1 K/uL (0.0-0.2); BASO % 0.5 % (0.0-2.0); EOS # 0.2 K/uL (0.0-0.7); EOS % 1.6 % (0.0-4.0); HEMOGLOBIN 11.9 g/dL (11.0-16.0); LYMPH # 2.3 K/uL (1.0-4.3); MEAN CELL VOLUME 86.2 fL (81.0-99.0); MEAN CORPUSCULAR HGB CONC 33.7 g/dL (33.0-37.0); MONO # 0.6 K/uL (0.0-0.8); NEUT # 7.1 K/uL (1.8-7.0); NEUT % 69.9 % (50.0-75.0); RBC 4.1 Mil/uL (3.80-5.20); RED CELL DISTRIBUTION WIDTH 14.6 % (11.5-14.5); WHITE BLOOD COUNT 10.2 K/uL (4.8-10.8)
[2017-08-16 06:54] LABS: ALB/GLOB RATIO 0.9 (1.0-2.1); ALBUMIN 3.4 g/dL (3.5-5.0); ALT/SGPT 49 U/L (9-52); AST/SGOT 30 U/L (14-36); BLOOD UREA NITROGEN 11 mg/dL (7-17); CALCIUM 8.5 mg/dl (8.6-10.4); GFR AFRICAN-AMERICAN > 60; GFR NON-AFRICAN AMERICAN > 60
[2017-08-16] MEDS: Enoxaparin 30 mg Syringe SC SCH (10:04)
--- NOTE | 2017-08-16 11:58 | NM ---
PROCEDURE: Ceretec labeled white blood cell study. Negative test (concurrent with this examination). HISTORY: Abdominal Pain R/O Intraabdominal Collection COMPARISON: 08/07/2017 CT abdomen and pelvis. 08/13/2017 abdominal ultrasound. TECHNIQUE: 22.8 mCi technetium 99 M Ceretec labeled white blood cell studies administered intravenously. Examination performed per institutional protocol with imaging at 2 hours and 20 hours post-injection. FINDINGS: Expected uptake in the liver and spleen. Small photon deficient area in the spleen corresponds to the finding on recent CT scan, splenic infarct. Expected uptake in the alimentary tract. IMPRESSION: Negative examination.
--- NOTE | 2017-08-16 14:32 | CP.PCM.DIS ---
Provider - Provider Date of Admission: 08/07/17 15:58 Attending physician: Tony Donis Jr, MD Primary care physician: Gagandeep Consults: ID: Rodriguez Time Spent in preparation of Discharge (in minutes): 45 Hospital Course - Lab Results Lab Results: Micro Results 08/11/17 06:15 Blood-Venous Blood Culture - Final NO GROWTH AFTER 5 DAYS 08/11/17 05:45 Blood-Venous Blood Culture - Final NO GROWTH AFTER 5 DAYS 08/11/17 05:45 Blood-Venous Gram Stain - Final TEST NOT PERFORMED 08/10/17 21:49 Cerebral Spinal Fluid Gram Stain - Final 08/10/17 21:49 Cerebral Spinal Fluid CSF Culture - Final No growth. 08/07/17 14:20 Blood Blood Culture - Final NO GROWTH AFTER 5 DAYS 08/07/17 14:20 Blood Gram Stain - Final TEST NOT PERFORMED 08/12/17 09:32 Cerebral Spinal Fluid Fungal Culture - Preliminary 08/10/17 21:49 Spinal Fluid Gram Stain - Final 08/10/17 21:49 Spinal Fluid Fungal Smear - Preliminary 08/07/17 14:00 Blood Blood Culture - Final Escherichia Coli 08/07/17 14:00 Blood Gram Stain - Final 08/07/17 Unknown Urine Urine Culture - Final No Growth (<1,000 CFU/ML) Most Recent Lab Values WBC 10.2 K/uL (4.8-10.8) 08/16/17 06:27 RBC 4.10 Mil/uL (3.80-5.20) 08/16/17 06:27 Hgb 11.9 g/dL (11.0-16.0) 08/16/17 06:27 Hct 35.3 % (34.0-47.0) 08/16/17 06:27 MCV 86.2 fL (81.0-99.0) 08/16/17 06:27 MCH 29.0 pg (27.0-31.0) 08/16/17 06:27 MCHC 33.7 g/dL (33.0-37.0) 08/16/17 06:27 RDW 14.6 % (11.5-14.5) H 08/16/17 06:27 Plt Count 540 K/uL (130-400) H 08/16/17 06:27 MPV 8.0 fL (7.2-11.7) 08/16/17 06:27 Neut % (Auto) 69.9 % (50.0-75.0) 08/16/17 06:27 Lymph % (Auto) 22.0 % (20.0-40.0) 08/16/17 06:27 [place] % (Auto) 6.0 % (0.0-10.0) 08/16/17 06:27 Eos % (Auto) 1.6 % (0.0-4.0) 08/16/17 06:27 Baso % (Auto) 0.5 % (0.0-2.0) 08/16/17 06:27 Neut # (Auto) 7.1 K/uL (1.8-7.0) H 08/16/17 06:27 Lymph # (Auto) 2.3 K/uL (1.0-4.3) 08/16/17 06:27 [place] # (Auto) 0.6 K/uL (0.0-0.8) 08/16/17 06:27 Eos # (Auto) 0.2 K/uL (0.0-0.7) 08/16/17 06:27 Baso # (Auto) 0.1 K/uL (0.0-0.2) 08/16/17 06:27 Neutrophils % (Manual) 66 % (50-75) 08/10/17 06:28 Band Neutrophils % 3 % (0-2) H 08/10/17 06:28 Lymphocytes % (Manual) 22 % (20-40) 08/10/17 06:28 Monocytes % (Manual) 6 % (0-10) 08/10/17 06:28 Basophils % (Manual) 1 % (0-2) 08/10/17 06:28 Metamyelocytes % 1 % (0-0) H 08/10/17 06:28 Myelocytes % 1 % (0-0) H 08/10/17 06:28 Differential Comment Cancelled 08/07/17 13:26 Platelet Estimate Normal (NORMAL) 08/10/17 06:28 Large Platelets Present 08/10/17 06:28 Hypochromasia (manual) Slight 08/10/17 06:28 Poikilocytosis (manual Slight 08/08/17 07:18 Anisocytosis (manual) Slight 08/08/17 07:18 Target Cells Slight 08/08/17 07:18 Ovalocytes Slight 08/08/17 07:18 Sarahy Cells Slight 08/08/17 07:18 ESR 70 mm/hr (0-20) H 08/09/17 06:29 pO2 19 mm/Hg (30-55) L 08/08/17 11:17 VBG pH 7.35 (7.32-7.43) 08/08/17 11:17 VBG pCO2 37 mmHg (40-60) L 08/08/17 11:17 VBG HCO3 19.3 mmol/L 08/08/17 11:17 VBG Total CO2 21.5 mmol/L (22-28) L 08/08/17 11:17 VBG O2 Sat (Calc) 34.7 % (40-65) L 08/08/17 11:17 VBG Base Excess -4.7 mmol/L (0.0-2.0) L 08/08/17 11:17 VBG Potassium 3.3 mmol/L (3.6-5.2) L 08/08/17 11:17 Sodium 141.0 mmol/l (132-148) 08/08/17 11:17 Chloride 109.0 mmol/L (98-107) H 08/08/17 11:17 Glucose 125 mg/dl (65-105) H 08/08/17 11:17 Lactate 1.9 mmol/L (0.7-2.1) 08/08/17 11:17 Sodium 141 mmol/L (132-148) 08/16/17 06:27 Potassium 4.3 mmol/L (3.6-5.2) 08/16/17 06:27 Chloride 102 mmol/L (98-107) 08/16/17 06:27 Carbon Dioxide 26 mmol/L (22-30) 08/16/17 06:27 Anion Gap 18 (10-20) 08/16/17 06:27 BUN 11 mg/dL (7-17) 08/16/17 06:27 Creatinine 0.5 mg/dL (0.7-1.2) L 08/16/17 06:27 Est GFR ( Amer) > 60 08/16/17 06:27 Est GFR (Non-Af Amer) > 60 08/16/17 06:27 Random Glucose 92 mg/dL (65-105) 08/16/17 06:27 Calcium 8.5 mg/dl (8.6-10.4) L 08/16/17 06:27 Phosphorus 3.1 mg/dL (2.5-4.5) 08/16/17 06:27 Magnesium 2.3 mg/dL (1.6-2.3) 08/16/17 06:27 Total Bilirubin 0.6 mg/dL (0.2-1.3) 08/16/17 06:27 Direct Bilirubin 0.4 mg/dL (0.0-0.4) 08/13/17 08:57 GGT 101 U/L (8-78) H 08/08/17 07:18 AST 30 U/L (14-36) 08/16/17 06:27 ALT 49 U/L (9-52) 08/16/17 06:27 Alkaline Phosphatase 174 U/L (38-126) H 08/16/17 06:27 Lactate Dehydrogenase 799 U/L (313-618) H 08/11/17 06:56 Total Creatine Kinase 30 U/L (30-135) 08/12/17 23:03 CK-MB (Mass) < 0.22 ng/mL (0.0-3.38) 08/12/17 23:03 Troponin I < 0.0120 ng/mL (0.00-0.120) 08/12/17 23:03 C-React Prot High Sens > 15.00 mg/L (1.00-3.00) H 08/09/17 06:29 Total Protein 7.1 g/dL (6.3-8.3) 08/16/17 06:27 Albumin 3.4 g/dL (3.5-5.0) L 08/16/17 06:27 Globulin 3.6 gm/dL (2.2-3.9) 08/16/17 06:27 Albumin/Globulin Ratio 0.9 (1.0-2.1) L 08/16/17 06:27 Lipase 28 U/L (23-300) 08/07/17 13:26 Venous Blood Potassium 3.3 mmol/L (3.6-5.2) L 08/08/17 11:17 Urine Color Yellow (YELLOW) 08/10/17 02:44 Urine Clarity Clear (Clear) 08/10/17 02:44 Urine pH 6.0 (5.0-8.0) 08/10/17 02:44 Ur Specific [place] 1.010 (1.003-1.030) 08/10/17 02:44 Urine Protein Negative mg/dL (NEGATIVE) 08/10/17 02:44 Urine Glucose (UA) Normal mg/dL (Normal) 08/10/17 02:44 Urine Ketones Negative mg/dL (NEGATIVE) 08/10/17 02:44 Urine Blood 2+ (NEGATIVE) H 08/10/17 02:44 Urine Nitrate Negative (NEGATIVE) 08/10/17 02:44 Urine Bilirubin Negative (NEGATIVE) 08/10/17 02:44 Urine Urobilinogen Normal mg/dL (0.2-1.0) 08/10/17 02:44 Ur Leukocyte Esterase Neg [place]/uL (Negative) 08/10/17 02:44 Urine WBC (Auto) 11 /hpf (0-5) H 08/10/17 02:44 Urine RBC (Auto) 33 /hpf (0-3) H 08/10/17 02:44 Urine WBC Clumps (Auto) Few /hpf (NONE) H 08/07/17 13:33 Ur Squamous Epith Cells < 1 /hpf (0-5) 08/10/17 02:44 Urine Bacteria Rare (<OCC) 08/10/17 02:44 Urine HCG, Qual Negative (NEGATIVE) 08/07/17 13:33 Fluid Type Spinal fluid 08/10/17 21:34 CSF Volume 2 mL (0-1) H 08/10/17 21:34 CSF Appearance Clear/colorless (CLEAR) 08/10/17 21:34 CSF WBC 0.0 /mm3 (0.0-5.0) 08/10/17 21:34 CSF RBC 0.0 /mm3 (0.0-0.0) 08/10/17 21:34 CSF Total Cell Counted TEST NOT PERFORMED 08/10/17 21:34 CSF Monos/Macrophages TEST NOT PERFORMED 08/10/17 21:34 CSF Comment TEST NOT PERFORMED 08/10/17 21:34 CSF Glucose 54 mg/dL (40-70) 08/10/17 21:43 CSF Total Protein 44.0 mg/dL (12-60) 08/10/17 21:43 CSF VDRL Nonreactive (Nonreactive) 08/10/17 21:43 CSF Enterovirus Source Csf 08/10/17 21:43 CSF Enterovirus RNA Qual Not detected (Not Detected) 08/10/17 21:43 Vancomycin Trough 6.7 ug/mL (5.0-10.0) 08/11/17 06:56 NATALYA 6 Profile Negative (NEGATIVE) 08/10/17 06:28 Complement C4 40.3 mg/dL (14.0-44.0) 08/10/17 06:28 Tot Complement (CH50) 60 U/mL (31-60) 08/10/17 06:28 Absolute Lymphs (Flow) 1244 Cells/mcL (850-3900) 08/10/17 16:52 % CD3 Cells 53 Percent (57-85) L 08/10/17 16:52 Absolute CD3 Count 662 Cells/mcL (840-3060) L 08/10/17 16:52 % CD4 Cells 45 Percent (30-61) 08/10/17 16:52 Absolute CD4 Count 555 Cells/mcL (490-1740) 08/10/17 16:52 T-Help/Suppress Ratio 5.30 Ratio (0.86-5.00) H 08/10/17 16:52 % CD8 Cells 8 Percent (12-42) L 08/10/17 16:52 Absolute CD8 Count 105 Cells/mcL (180-1170) L 08/10/17 16:52 West Nile RNA (RT-PCR) Not detected (Not Detected) 08/10/17 21:43 Hepatitis A IgM Ab Negative (NEGATIVE) 08/13/17 08:57 Hep Bs Antigen Negative (NEGATIVE) 08/13/17 08:57 Hep B Core IgM Ab Negative (NEGATIVE) 08/13/17 08:57 Hepatitis C Antibody Negative (NEGATIVE) 08/13/17 08:57 HSV Source Description Csf 08/10/17 21:43 HSV Culture Source Csf 08/10/17 21:43 HSV Rapid Culture TNP 08/10/17 21:43 HSV I DNA PCR Not detected (Not Detected) 08/10/17 21:43 HSV II DNA PCR Not detected (Not Detected) 08/10/17 21:43 HIV 1&2 Antibody Screen Negative (NEGATIVE) 08/10/17 16:52 Influenza Typ A,B (EIA) Negative for flu a/b (NEGATIVE) 08/07/17 13:29 Influenza Type A Ab 1:16 titer (<1:8) H 08/09/17 06:29 Influenza Type B Ab 1:8 titer (<1:8) H 08/09/17 06:29 H.influenzae Type B Ag Negative (NEGATIVE) 08/10/17 19:29 Ur L.pneumophila Ag Negative (NEGATIVE) 08/08/17 20:43 Blood Parasites Smear Negative (NEGATIVE) 08/11/17 06:56 Mycoplasma pneumon IgM Negative (NEGATIVE) 08/09/17 06:29 N.meningitidis ACY/W135 Negative (NEGATIVE) 08/10/17 19:29 N.meningi B/E.coli K1 Ag Negative (NEGATIVE) 08/10/17 19:29 Group B Strep Antigen Negative (NEGATIVE) 08/10/17 19:29 S. pneumoniae Antigen Negative (NEGATIVE) 08/10/17 19:29 TB Test (QFT) Nil 0.02 IU/mL 08/11/17 14:00 TB Test Mitogen - Nil 0.71 IU/mL 08/11/17 14:00 TB Test TB - Nil 0.17 IU/mL 08/11/17 14:00 TB Test (QFT) Negative (Negative) 08/11/17 14:00 - Hospital Course Hospital Course: Patient is a 46 year old female with no significant past medical history, who presents to the ED complaining of generalized headache, nausea/vomiting, body aches, and dysuria. Patient says this started Tuesday so she came to the ED to be evaluated, and was ultimately was sent home on tamiflu, zofran, and ibuprofen. Patient says over the weekend she felt like her symptoms were getting worse and she was having fever, chills, and 2 episodes of emesis, so she decided to come back today. Patient admits to associated left sided flank and back pain, hematuria, suprapubic tenderness, and urinary frequency. Patient also admits to nasal congestion and SOB and rapid heart rate when walking/ exerting herself. She denies dizziness, sore throat, changes in vision/hearing, chest pain, cough, diarrhea, constipation, calf pain, lower extremity swelling, sick contacts, and recent travel. Hospital course: Patient had a CT showing stranding around the left kidney most likely pyleonephritis but the urine culture was negative. She continued to spike fevers and was found to have gram negative bacteremia. Repeat CT was done showing redemonstration of the pyleo as well as an upper lobe pneumonia. The patient then began to have unrelenting GARCIA and meningeal signs. CT of the head was negative at that time so an LP was done. LP was sterile. Pateint fevers stopped on Merrem and repeat blood cultures were negative. Patient went to have Ceretec scan looking for intrabdominal abscess but this was negative. GB US showed a hyperechoic mass in the liver most likely fatty infiltration that can followed up with MRI of the liver as an outpatient. Discharge Exam - Head Exam Head Exam: ATRAUMATIC, NORMAL INSPECTION, NORMOCEPHALIC - Eye Exam Eye Exam: EOMI, Normal appearance, PERRL Pupil Exam: NORMAL ACCOMODATION, PERRL - Respiratory Exam Respiratory Exam: Clear to PA & Lateral, UNREMARKABLE - Cardiovascular Exam Cardiovascular Exam: REGULAR RHYTHM - GI/Abdominal Exam GI & Abdominal Exam: Normal Bowel Sounds - Neurological Exam Neurological exam: Alert, CN II-XII Intact, Normal Gait, Oriented x3, Reflexes Normal - Psychiatric Exam Psychiatric exam: Normal Affect, Normal Mood - Skin Skin Exam: Dry, Intact, Normal Color, Warm Discharge Plan - Follow Up Plan Condition: STABLE Disposition: HOME/ ROUTINE Instructions: Sepsis (DC), Sepsis (GEN) Additional Instructions: Please follow up with Dr. Dnois in the office in 7-10 days. Please continue to take home medications Please come back to thew ED if symptoms return Please have MRI of the liver as an outpatient.
[2017-08-16 16:43] VITALS: BP 103/66; PULSE 75; TEMP 99; O2SAT 97
--- NOTE | 2017-08-16 23:02 | CARD ---
APPROVED REPORT EKG Measurement Heart [id number] <Conclusion> Normal sinus rhythm Low voltage QRS Borderline ECG
--- NOTE | 2017-08-16 23:20 | CP.PCM.PN ---
Subjective - Date & Time of Evaluation Date of Evaluation: 08/16/17 Time of Evaluation: 23:19 - Subjective Subjective: CHIEF COMPLAINTS TODAY : afebrile tmax 99.0 denies headache. Denies left flank pain. s/p ceratac scan. S/P LP -VE ROS. HEENT : N. Resp : No SOB wheezing, cough Cardio : No CP, PND orthopnea GI : LT.FLANK PAIN IMPROVED. ,NO NAUSEA ,NO VOMITING BOAT DECKHAND : No headache , focal deficit. Musculoskel : N Ext. : Pedal pulses intact, no edema or calf pain Derm : N Psych : N. PE. Pt. is alert awake in no distress. V.S As noted in the chart Head ,ear nose,throat and eyes : Normal. Neck : Supple with normal carotids. Lungs: FAIR AIR ENTRY Heart : S1 ,S2 REGULAR, NO MURMUR OR GALLOP Abd : SOFT ,NON TENDER LT. FLANK, with normal bowel sounds. Neuro : Moves all ext. with no localized deficit. Ext : No edema with intact pulses. Neg. calf tenderness Derm : No rashes or decubitus ulcer. Radiology/Labs . CERETEC SCAN NOTED -VE NEGATIVE,EXCEPT FOR SPLENIC INFARCT ?OLD VS NEW CSF -CULTURE NEGATIVE FOR 2 DAYS. Echo is normal CHEST X-RAY - PVC suboptimal inspiratory effort. BLOOD CULTURE +VE E.COLI S-MERREM,GENT,CIPRO REPEAT BLOOD CULTURE 08/12/17 -VE TO DATE URINE CULTURES NEGATIVE GROWTH. IMPROVING TRANSAMINITIS ? MOTRIN VS INFECTION CT SINUSES - UNREMARKABLE HEPATITIS SCREEN -VE Objective - Vital Signs/Intake and Output Vital Signs (last 24 hours): Temp Pulse Resp BP Pulse Ox 99 F 75 20 103/66 97 08/16/17 15:00 08/16/17 15:00 08/16/17 15:00 08/16/17 15:00 08/16/17 15:00 Intake and Output: 08/16/17 08/17/17 18:59 06:59 Intake Total 720 Balance 720 - Labs Labs: 08/16/17 06:27 08/16/17 06:27 - Constitutional Appears: No Acute Distress - Head Exam Head Exam: NORMAL INSPECTION - Eye Exam Eye Exam: EOMI, PERRL - ENT Exam ENT Exam: Normal Oropharynx - Neck Exam Neck Exam: Normal Inspection - Respiratory Exam Respiratory Exam: Clear to Ausculation Bilateral - Cardiovascular Exam Cardiovascular Exam: REGULAR RHYTHM, +S1, +S2. absent: Murmur - GI/Abdominal Exam GI & Abdominal Exam: Soft, Normal Bowel Sounds. absent: Rebound - Extremities Exam Extremities Exam: Normal Capillary Refill. absent: Calf Tenderness, Pedal Edema - Neurological Exam Neurological Exam: Alert, Awake, CN II-XII Intact, Oriented x3, Reflexes Normal - Skin Skin Exam: Normal Color, Warm Assessment and Plan (1) Gram-negative sepsis Assessment & Plan: SOURCE OF GRAM-NEGATIVE SEPSIS NOT VERY CLEAR-MOST PROBABLE VS INTRA- ABDOMINAL CONTINUE iv MERREM 1 G EVERY 8 HOURLY.08/08/17. CASE DISCUSSED WITH THE STAFF AND RESIDENT .CASE DISCUSSED WITH RADIOLOGY. dISCUSSED ABOUT QUESTIONABLE MASS LIVER. RADIOLOGY SUGGESTS MRI ABDOMEN WITH SPECIAL ATTENTION TO LIVER LESION WITH AND WITHOUT GADOLIUM. PMD WANTS TO GET IT OUTPATIENT, PATIENT STABLE AND ANXIOUS TO GO HOME. PER PRIVATE MD DR TADEO. . Status: Acute (2) Pneumonia Assessment & Plan: patient denies any cough or shortness of breath. QuantiFERON Gold TB tests NEGATIVE. Status: Acute (3) Headache Assessment & Plan: much improved. If symptoms persist advocated to the family with the women nurse to follow up with neurology as outpatient. Status: Acute (4) Elev transaminase/LDH Assessment & Plan: LFTs improving. Follow-up as outpatient Status: Acute
== END 2017-08-16 18:08 | disposition home or self-care (01) | DRG 871 ==
LOC: C.ER 12:22 → C.9E 15:58 → C.3T 16:52
PROVIDERS: ADMIT Internal Medicine; ATTEND Internal Medicine
PROC: 009U3ZX Drainage of Spinal Canal, Percutaneous Approach, Diagnostic (ICD-10-PCS; principal; 2017-08-11)
DX: A41.51 Sepsis due to Escherichia coli [E. coli] (principal); J18.9 Pneumonia, unspecified organism; N10 Acute pyelonephritis